=== PATIENT | male | born 1980 | race Caucasian/White ===

== ENCOUNTER 2022-07-15 19:58 | Emergency (ER) | payer MEDICARE, OTHER ==
[~2022-07-15] VITALS: Ht 180.3 cm; Wt 77.1 kg
--- NOTE | 2022-07-15 21:12 | NUR ---
CALLED FOR TRIAGE. NO ANSWER
--- NOTE | 2022-07-15 21:36 | NUR ---
called for triage. no answer
[2022-07-15 22:13] VITALS: BP 139/98
[2022-07-15] MEDS ORDERED: OLANZAPINE 5 MG TABLET ONE (22:28)
[2022-07-15] MEDS ORDERED: OLANZAPINE 5 MG TABLET PO ONE (22:30)
== END 2022-07-15 22:43 | disposition home or self-care (01) ==
LOC: ER 20:03
DX: R44.1 Visual hallucinations (principal); E11.9 Type 2 diabetes mellitus without complications; F17.200 Nicotine dependence, unspecified, uncomplicated; Z88.0 Allergy status to penicillin; Z59.00 Homelessness unspecified

== ENCOUNTER 2022-07-16 13:56 | Emergency (ER) | payer MEDICARE, OTHER ==
[~2022-07-16] VITALS: Ht 180.3 cm; Wt 90.7 kg
[2022-07-16 15:20] LABS: BASOPHILS # (AUTO) 0.1 K/uL (0.0-0.2); EOSINOPHILS % (AUTO) 2.4 % (0.0-6.0); HEMATOCRIT 41 % (39-51); HEMOGLOBIN 13.9 g/dL (13.5-17.5); LYMPHOCYTES # (AUTO) 1.2 K/uL (0.8-4.8); LYMPHOCYTES % (AUTO) 23.9 % (20.0-44.0); MEAN CORPUSCULAR HGB CONC 34 g/dl (31.0-36.0); MEAN CORPUSCULAR VOLUME 90 fL (80-96); MONOCYTES # (AUTO) 0.3 K/uL (0.1-1.30); MONOCYTES % (AUTO) 5.3 % (2.0-12.0); NEUTROPHILS # (AUTO) 3.5 K/uL (1.8-8.9); NEUTROPHILS % (AUTO) 66.4 % (43.0-81.0); PLATELET COUNT (AUTO) 320 K/uL (150-450); RED BLOOD CELL COUNT(AUTO) 4.55 MIL/uL (4.5-6.0); WHITE BLOOD COUNT (AUTO) 5.2 K/uL (4.3-11.0)
[2022-07-16 15:30] LABS: CALCIUM, SERUM 9.3 mg/dL (8.5-10.1); CARBON DIOXIDE 32 mmol/L (21-32); CHLORIDE 99 mmol/L (98-107); CREATININE 0.9 mg/dL (0.6-1.3); GLUCOSE 279 mg/dL (74-106); POTASSIUM 3.7 mmol/L (3.5-5.1); SODIUM SERUM 135 mmol/L (136-145); UREA NITROGEN, BLOOD 10 mg/dL (7-18)
[2022-07-16 15:36] LABS: ACETAMINOPHEN 4 ug/ml (10-30); ALANINE AMINOTRANSFERASE 48 U/L (12-78); ALBUMIN 4.1 g/dL (3.4-5.0); ALCOHOL, BLOOD < 3 mg/dL (0-0); ALKALINE PHOSPHATASE 158 U/L (46-116); ASPARTATE AMINOTRANSFERASE 25 U/L (15-37); BILIRUBIN,DIRECT 0.2 mg/dL (0.0-0.2); BILIRUBIN,TOTAL 0.6 mg/dL (0.2-1.0); TOTAL PROTEIN, SERUM 7.3 g/dL (6.4-8.2)
[2022-07-16 15:44] LABS: BILIRUBIN,URINE 1+ (NEGATIVE); COLOR,URINE YELLOW (YELLOW); LEUKOCYTE ESTERASE ,URINE NEGATIVE (NEGATIVE); NITRITE, URINE NEGATIVE (NEGATIVE); PROTEIN,URINE NEGATIVE (NEGATIVE); UGLUCOSE 3+ mg/dL (NEGATIVE)
[2022-07-16 16:10] LABS: BACTERIA,URINE None seen /HPF (None Seen); CALCIUM OXALATE CRYSTALS,UR Moderate /HPF (None Seen); RBC,URINE 0-2 /HPF (0-2); SQUAMOUS EPITHELIAL CELL,UR 0-2 /HPF (None Seen); WBC,URINE 0-2 /HPF (0-3)
[2022-07-16] MEDS ORDERED: LORAZEPAM 1 MG TABLET PO ONE (17:00)
[2022-07-16] MEDS ORDERED: INSULIN REGULAR, HUMAN 100 UNIT/ML 10 ML VIAL SQ ONE (17:00)
[2022-07-16] MEDS ORDERED: LORAZEPAM 1 MG TABLET ONE (17:28)
[2022-07-16] MEDS ORDERED: INSULIN REGULAR, HUMAN 100 UNIT/ML 10 ML VIAL ONE (17:28)
--- NOTE | 2022-07-16 21:08 | NUR ---
PT ACCEPTED TO [facility]. # FOR REPORT [phone], UNIT 2
--- NOTE | 2022-07-16 21:18 | NUR ---
PER ART- [facility] INTAKE, DR. GRIFFITH ACCEPTED, RN FOR REPORT, UNIT 2 EXT 240, [facility] VAN STAFFING OPERATIONS MANAGER IN 45MIN TO 1 HOUR
--- NOTE | 2022-07-16 21:53 | NUR ---
REPORT GIVEN TO INGRID VIGIL AT [facility]
[2022-07-16 21:54] VITALS: BP 128/80
== END 2022-07-16 21:54 ==
LOC: ER 14:03
DX: F23 Brief psychotic disorder (principal); E11.65 Type 2 diabetes mellitus with hyperglycemia; E78.5 Hyperlipidemia, unspecified; R82.2 Biliuria; F41.9 Anxiety disorder, unspecified; F11.20 Opioid dependence, uncomplicated; F17.210 Nicotine dependence, cigarettes, uncomplicated; Z79.4 Long term (current) use of insulin; Z59.01 Sheltered homelessness; Z20.822 Contact with and (suspected) exposure to COVID-19
CPT/HCPCS: 99285; 85025; 80048; 80076; 81001; 36415; 82962 ×2; 87426; 80143; 80320; 80307; J1815; C9803; G0480

== ENCOUNTER 2022-07-26 14:03 | Emergency (ER) | payer MEDICARE, OTHER ==
[~2022-07-26] VITALS: Ht 180.3 cm; Wt 84.4 kg
[2022-07-26 14:20] VITALS: BP 152/92
--- NOTE | 2022-07-26 14:26 | NUR ---
SECURITY AT BEDSIDE FOR WANDING.
[2022-07-26] MEDS ORDERED: ONDANSETRON 4 MG TAB.RAPDIS ONE (14:28)
[2022-07-26] MEDS ORDERED: ONDANSETRON 4 MG TAB.RAPDIS SL ONE (14:30)
--- NOTE | 2022-07-26 14:43 | NUR ---
URINE SAMPLE COLLECTED AND SENT TO LAB
--- NOTE | 2022-07-26 14:44 | NUR ---
COVID SWAB COLLECTED AND TO LAB
[2022-07-26 15:09] LABS: CALCIUM, SERUM 9.4 mg/dL (8.5-10.1); CARBON DIOXIDE 33 mmol/L (21-32); CHLORIDE 95 mmol/L (98-107); GLUCOSE 171 mg/dL (74-106); POTASSIUM 3.9 mmol/L (3.5-5.1); SODIUM SERUM 135 mmol/L (136-145); UREA NITROGEN, BLOOD 10 mg/dL (7-18)
[2022-07-26 15:14] LABS: ALANINE AMINOTRANSFERASE 80 U/L (12-78); ALKALINE PHOSPHATASE 197 U/L (46-116); ASPARTATE AMINOTRANSFERASE 45 U/L (15-37); BILIRUBIN,DIRECT 0.1 mg/dL (0.0-0.2); BILIRUBIN,TOTAL 0.4 mg/dL (0.2-1.0); TOTAL PROTEIN, SERUM 7.5 g/dL (6.4-8.2)
[2022-07-26 15:15] LABS: ALCOHOL, BLOOD < 3 mg/dL (0-0)
[2022-07-26 15:28] LABS: BILIRUBIN,URINE NEGATIVE (NEGATIVE); COLOR,URINE YELLOW (YELLOW); LEUKOCYTE ESTERASE ,URINE NEGATIVE (NEGATIVE); NITRITE, URINE NEGATIVE (NEGATIVE); PROTEIN,URINE 1+ mg/dl (NEGATIVE); UGLUCOSE 2+ mg/dL (NEGATIVE); UROBILINOGEN,URINE 0.2 EU/dL (0.2)
[2022-07-26 15:29] LABS: BASOPHILS % (AUTO) 0.4 % (0.0-2.0); EOSINOPHILS % (AUTO) 0.1 % (0.0-6.0); HEMATOCRIT 44 % (39-51); HEMOGLOBIN 14.9 g/dL (13.5-17.5); LYMPHOCYTES # (AUTO) 1.6 K/uL (0.8-4.8); LYMPHOCYTES % (AUTO) 19.2 % (20.0-44.0); MEAN CORPUSCULAR HGB CONC 34 g/dl (31.0-36.0); MEAN CORPUSCULAR VOLUME 89 fL (80-96); MONOCYTES # (AUTO) 0.6 K/uL (0.1-1.30); MONOCYTES % (AUTO) 7.2 % (2.0-12.0); NEUTROPHILS % (AUTO) 73.1 % (43.0-81.0); PLATELET COUNT (AUTO) 317 K/uL (150-450); RED BLOOD CELL COUNT(AUTO) 4.91 MIL/uL (4.5-6.0); WHITE BLOOD COUNT (AUTO) 8.2 K/uL (4.3-11.0)
[2022-07-26] MEDS ORDERED: LORAZEPAM 1 MG TABLET ONE (15:29)
[2022-07-26] MEDS ORDERED: LORAZEPAM 1 MG TABLET PO ONE (15:30)
[2022-07-26 15:57] LABS: BACTERIA,URINE None seen /HPF (None Seen); MUCUS,URINE Moderate /LPF (None Seen); SQUAMOUS EPITHELIAL CELL,UR 0-2 /HPF (None Seen); WBC,URINE 0-2 /HPF (0-3)
--- NOTE | 2022-07-26 16:28 | NUR ---
FAXED CLINICALS TO [facility] AND [facility].
--- NOTE | 2022-07-26 16:43 | NUR ---
PT ACCEPTED TO [facility] UNDER DR. MEJIA. PLEASE CALL [phone] FOR REPORT. TRANSPORT ETA 20 MINS.
--- NOTE | 2022-07-26 17:05 | NUR ---
SALES REPRESENTATIVE GROCERIES BY [facility] TRANSPORT IN STABLE CONDITION.
== END 2022-07-26 17:07 | disposition home or self-care (01) ==
LOC: ER 14:20
DX: F32.A Depression, unspecified (principal); E11.9 Type 2 diabetes mellitus without complications; F17.200 Nicotine dependence, unspecified, uncomplicated; F41.9 Anxiety disorder, unspecified; Z20.822 Contact with and (suspected) exposure to COVID-19; Z88.0 Allergy status to penicillin
CPT/HCPCS: 99283; 85025; 80048; 80076; 81001; 36415; 87426; 80143; 80320; 80307; Q0162; C9803; G0480

== ENCOUNTER 2022-08-06 12:23 | Emergency (ER) | payer MEDICARE, OTHER ==
[~2022-08-06] VITALS: Ht 177.8 cm; Wt 81.6 kg
--- NOTE | 2022-08-06 12:39 | NUR ---
SECURITY CALLED IN FOR ROUNDING.
--- NOTE | 2022-08-06 12:39 | NUR ---
BIBS FOR HAVING SI WITH NO PLAN AND C/O NAUSEA DENIES HI. DENIES HAVING VISUAL OR AUDITORY HALLUCINATIONS. WILL CONTINUE TO MONITOR THE PATIENT.
--- NOTE | 2022-08-06 12:46 | NUR ---
COVID SWAB DONE AND SENT TO THE LAB. URINE COLLECTED AND SENT TO THE LAB.
[2022-08-06 13:00] LABS: BASOPHILS % (AUTO) 0.4 % (0.0-2.0); HEMATOCRIT 48 % (39-51); HEMOGLOBIN 15.6 g/dL (13.5-17.5); LYMPHOCYTES # (AUTO) 1.1 K/uL (0.8-4.8); LYMPHOCYTES % (AUTO) 17.7 % (20.0-44.0); MEAN CORPUSCULAR HGB CONC 33 g/dl (31.0-36.0); MEAN CORPUSCULAR VOLUME 94 fL (80-96); MONOCYTES # (AUTO) 0.5 K/uL (0.1-1.30); MONOCYTES % (AUTO) 7.5 % (2.0-12.0); NEUTROPHILS # (AUTO) 4.7 K/uL (1.8-8.9); NEUTROPHILS % (AUTO) 74.4 % (43.0-81.0); PLATELET COUNT (AUTO) 373 K/uL (150-450); RED BLOOD CELL COUNT(AUTO) 5.04 MIL/uL (4.5-6.0); WHITE BLOOD COUNT (AUTO) 6.3 K/uL (4.3-11.0)
[2022-08-06] MEDS ORDERED: ONDANSETRON 4 MG TAB.RAPDIS SL ONE (13:00)
[2022-08-06] MEDS ORDERED: ONDANSETRON 4 MG TAB.RAPDIS ONE (13:20)
[2022-08-06] MEDS ORDERED: LORAZEPAM 1 MG TABLET ONE ×2 (13:20→17:32)
[2022-08-06 13:27] LABS: BILIRUBIN,URINE NEGATIVE (NEGATIVE); COLOR,URINE DARK YELLOW (YELLOW); LEUKOCYTE ESTERASE ,URINE NEGATIVE (NEGATIVE); NITRITE, URINE NEGATIVE (NEGATIVE); PROTEIN,URINE 1+ mg/dl (NEGATIVE); UGLUCOSE 2+ mg/dL (NEGATIVE)
[2022-08-06 13:28] LABS: BACTERIA,URINE Rare /HPF (None Seen); RBC,URINE 0-2 /HPF (0-2); SQUAMOUS EPITHELIAL CELL,UR Few /HPF (None Seen); WBC,URINE 0-2 /HPF (0-3)
[2022-08-06] MEDS ORDERED: LORAZEPAM 1 MG TABLET PO ONE ×2 (13:30→17:30)
[2022-08-06 13:42] LABS: CALCIUM, SERUM 9.1 mg/dL (8.5-10.1); CARBON DIOXIDE 31 mmol/L (21-32); CHLORIDE 93 mmol/L (98-107); CREATININE 1.1 mg/dL (0.6-1.3); GLUCOSE 296 mg/dL (74-106); POTASSIUM 4.6 mmol/L (3.5-5.1); SODIUM SERUM 130 mmol/L (136-145); UREA NITROGEN, BLOOD 12 mg/dL (7-18)
[2022-08-06 13:52] LABS: ALANINE AMINOTRANSFERASE 37 U/L (12-78); ALBUMIN 4.4 g/dL (3.4-5.0); ALKALINE PHOSPHATASE 157 U/L (46-116); ASPARTATE AMINOTRANSFERASE 24 U/L (15-37); BILIRUBIN,DIRECT 0.2 mg/dL (0.0-0.2); BILIRUBIN,TOTAL 0.8 mg/dL (0.2-1.0)
[2022-08-06 13:53] LABS: ALCOHOL, BLOOD < 3 mg/dL (0-0)
--- NOTE | 2022-08-06 16:39 | NUR ---
sent pt clinicals to [facility]
--- NOTE | 2022-08-06 19:25 | NUR ---
TRANSFERRED TO [facility] IN [facility] CONDITION WITH ALL HIS BELONGINGS
[2022-08-07 00:21] VITALS: BP 123/102
== END 2022-08-07 00:23 ==
LOC: ER 12:26
DX: R45.851 Suicidal ideations (principal); E11.9 Type 2 diabetes mellitus without complications; F17.200 Nicotine dependence, unspecified, uncomplicated; Z20.822 Contact with and (suspected) exposure to COVID-19; Z59.00 Homelessness unspecified; Z88.0 Allergy status to penicillin
CPT/HCPCS: 99285; 85025; 80048; 80076; 81001; 36415; 82962; 87426; 80143; 80320; 80307; Q0162; C9803; G0480

== ENCOUNTER 2022-10-12 16:32 | Inpatient (IN) | payer MEDICARE, OTHER ==
[~2022-10-12] VITALS: Ht 180.3 cm; Wt 89.4 kg
--- NOTE | 2022-10-12 17:10 | NUR ---
PATIENT CAME WITH ABDOMINAL PAIN AND VOMITING.ALERT AND ORIENTED.ON ROOM AIR.ATTACHED TO MONITOR.
--- NOTE | 2022-10-12 17:15 | NUR ---
DR WU AT BED SIDE
--- NOTE | 2022-10-12 17:55 | NUR ---
DR WU AT BED SIDE
[2022-10-12] MEDS ORDERED: IV NS 0.9% 1,000 ML BAG IV ONE (18:00)
[2022-10-12] MEDS ORDERED: MORPHINE SULFATE INJ 2 MG/ML DISP.SYRIN IV ONE (18:00)
[2022-10-12] MEDS ORDERED: KETOROLAC TROMETHAMINE INJ 30 MG/ML VIAL IV ONE ×2 (18:00→19:30)
[2022-10-12] MEDS ORDERED: ONDANSETRON HCL/PF 4 MG/2 ML VIAL IVP ONE (18:00)
--- NOTE | 2022-10-12 18:00 | NUR ---
IV 20G ON RT AC,BLOOD COLLECTED AND SEND TO LAB
--- NOTE | 2022-10-12 18:08 | NUR ---
ULTRA SOUND AT BED SIDE
[2022-10-12] MEDS ORDERED: KETOROLAC TROMETHAMINE 15 MG/ML VIAL ONE ×2 (18:09→19:26)
[2022-10-12] MEDS ORDERED: ONDANSETRON HCL/PF 4 MG/2 ML VIAL ONE (18:10)
[2022-10-12] MEDS ORDERED: MORPHINE SULFATE INJ 4 MG/ML DISP.SYRIN ONE (18:10)
[2022-10-12 18:14] LABS: BASOPHILS % (AUTO) 0.4 % (0.0-2.0); EOSINOPHILS % (AUTO) 1.5 % (0.0-6.0); HEMATOCRIT 41 % (39-51); HEMOGLOBIN 13.8 g/dL (13.5-17.5); LYMPHOCYTES # (AUTO) 1.8 K/uL (0.8-4.8); LYMPHOCYTES % (AUTO) 21.9 % (20.0-44.0); MEAN CORPUSCULAR HGB CONC 34 g/dl (31.0-36.0); MEAN CORPUSCULAR VOLUME 90 fL (80-96); MONOCYTES # (AUTO) 0.6 K/uL (0.1-1.30); MONOCYTES % (AUTO) 7.4 % (2.0-12.0); NEUTROPHILS # (AUTO) 5.7 K/uL (1.8-8.9); NEUTROPHILS % (AUTO) 68.8 % (43.0-81.0); PLATELET COUNT (AUTO) 252 K/uL (150-450); RED BLOOD CELL COUNT(AUTO) 4.55 MIL/uL (4.5-6.0); WHITE BLOOD COUNT (AUTO) 8.2 K/uL (4.3-11.0)
[2022-10-12 18:33] LABS: ALBUMIN 4.1 g/dL (3.4-5.0); BILIRUBIN,DIRECT 0.1 mg/dL (0.0-0.2); BILIRUBIN,TOTAL 0.4 mg/dL (0.2-1.0); CALCIUM, SERUM 9.9 mg/dL (8.5-10.1); CREATININE 0.9 mg/dL (0.6-1.3); POTASSIUM 5.2 mmol/L (3.5-5.1); TOTAL PROTEIN, SERUM 7.4 g/dL (6.4-8.2)
[2022-10-12] MEDS ORDERED: PANTOPRAZOLE 40 MG VIAL ONE (19:26)
[2022-10-12] MEDS ORDERED: LIDOCAINE VISCOUS 2% UD 15 ML UDC ONE (19:26)
[2022-10-12] MEDS ORDERED: MAG HYDROX/AL HYDROX/SIMETH 30 ML UDC ONE (19:26)
[2022-10-12] MEDS ORDERED: PANTOPRAZOLE 40 MG VIAL IV ONE (19:30)
[2022-10-12] MEDS ORDERED: LIDOCAINE VISCOUS 2% UD 15 ML UDC MM ONE (19:30)
[2022-10-12] MEDS ORDERED: MAG HYDROX/AL HYDROX/SIMETH 30 ML UDC PO ONE (19:30)
[2022-10-12] MEDS ORDERED: ONDANSETRON HCL/PF 4 MG/2 ML VIAL IVP PRN (20:30)
--- NOTE | 2022-10-12 21:15 | NUR ---
REPRT GIVEN TO PEG @ [facility]
--- NOTE | 2022-10-12 21:46 | NUR ---
GETTING TRANSFERRED TO THIRD FLOOR IN STABLE CONDITION
[2022-10-12 21:50] VITALS: BP 118/83; TEMP 98.2; O2SAT 97
[2022-10-12 22:00] VITALS: BP 118/83; TEMP 98.2; O2SAT 97
--- NOTE | 2022-10-12 22:00 | NUR ---
MS CLINICAL DATA MANAGEMENT MANAGER NOTE PATIENT ARRIVED AT THE UNIT FROM ER ON A GURNEY. HE IS ALERT AND ORIENTED, AO X 4. PT IS ON RA, TOLERATED WELL; NO S/S OF DISTRESS OR SOB. PT DENIES OF HAVING PAIN AT THIS MOMENT. IV ACCESS IS AT HIS R AC. #20G. SL. FLUSHED WELL WITH 10 CC OF NS. UPON ARRIVAL, VITAL SIGNS WERE TAKEN AND DOCUMENTED. SAFETY MEASURES ARE IN PLACED: BED IN LOWEST AND LOCKED POSITION; SIDE RAILS UP X 2; CALL LIGHT AND TABLE ARE WITHIN REACH. WILL CONTINUE MONITORING THE PT AND PROVIDE THE CARE PT NEEDS.
[2022-10-12] MEDS: IV LR 1000 ML 1,000 ML IV SCH (22:21)
[2022-10-12] MEDS: MORPHINE SULFATE INJ 2 MG/ML DISP.SYRIN IV PRN (22:26)
[2022-10-12] MEDS: ENOXAPARIN SODIUM 40 MG/0.4 ML DISP.SYRIN SQ SCH (22:27)
--- NOTE | 2022-10-12 22:30 | NUR ---
MS RN NOTE PT STATED THAT HE WAS HAVING PAIN AT HIS R SIDE OF ABD; PAIN LEVEL IS 9/10. PRN MEDICATION, MORPHINE 2 MG, ADMINISTERED PER MD ORDER.
--- NOTE | 2022-10-13 | NUR ---
MS RN NOTE FINISHED PT'S HOME MEDICATION RECON. TEXT DR.DERMENDJIAN SIEGEL AND NOTIFIED DOCTOR. IN ADDITION, NOTIFIED MD THAT THE PT STATED THE CURRENT PAIN MEDICATION IS NOT ABLE TO MANAGE HIS PAIN. ALSO NOTIFIED THAT THE PT IS DM TYPE II, AND NEED ORDERS FOR ACCU-CHEK AND SLIDING SCALE INSULIN ORDER.
[2022-10-13] MEDS ORDERED: CITA20TA19 (00:17)
[2022-10-13] MEDS ORDERED: METF-442 PO (00:17)
[2022-10-13] MEDS ORDERED: ALPR1TAB2 PO (00:17)
[2022-10-13] MEDS ORDERED: GABA600T12 PO (00:17)
[2022-10-13] MEDS ORDERED: QUET200T PO (00:17)
[2022-10-13] MEDS ORDERED: PANT20TA2 PO (00:17)
[2022-10-13] MEDS: ALPRAZOLAM 1 MG TABLET PO PRN ×2 (01:16→22:10)
--- NOTE | 2022-10-13 01:17 | NUR ---
MS RN NOTE PT STATED THAT HE IS HAVING ANXIETY AND NEEDED XANAX. PRN MEDICATION, XANAX 1 MG, ADMINISTERED TO THE PT.
[2022-10-13] MEDS ORDERED: DEXTROSE 50%-WATER 50 ML DISP.SYRIN IV PRN (01:30)
--- NOTE | 2022-10-13 01:30 | NUR ---
MS RN NOTE RECEIVED MD ORDER FOR ACCU CHECK AND SLIDING SCALE INSULIN.
[2022-10-13] MEDS: IV LR 1000 ML 1,000 ML IV SCH ×2 (01:37→05:39)
[2022-10-13] MEDS: MORPHINE SULFATE INJ 2 MG/ML DISP.SYRIN IV PRN (03:12)
[2022-10-13] MEDS: ACETAMINOPHEN 325 MG TABLET PO PRN (05:21)
--- NOTE | 2022-10-13 05:21 | NUR ---
MS RN NOTE PT STATED THAT HE WAS HAVING PAIN AT HIS R SIDE OF ABD; PAIN LEVEL IS 4/10. PRN MEDICATION, TYLENOL 650 MG, ADMINISTERED PER MD ORDER.
[2022-10-13] MEDS: BLOOD SUGAR DIAGNOSTIC 1 EACH STRIP IN SCH ×4 (06:39→23:28)
--- NOTE | 2022-10-13 06:39 | NUR ---
MS RN NOTE AM LAB DRAW WAS NOT ABLE TO BE DONE DUE TO PT'S CONDITION. THEY WILL TRY AGAIN LATER TODAY.
--- NOTE | 2022-10-13 06:39 | NUR ---
MS RN NOTE RECEIVED MD ORDER FOR PAIN MEDICATIONS.
[2022-10-13 06:48] LABS: BASOPHILS % (AUTO) 0.4 % (0.0-2.0); EOSINOPHILS % (AUTO) 1.5 % (0.0-6.0); HEMATOCRIT 39 % (39-51); HEMOGLOBIN 13.3 g/dL (13.5-17.5); LYMPHOCYTES # (AUTO) 1.6 K/uL (0.8-4.8); LYMPHOCYTES % (AUTO) 23.3 % (20.0-44.0); MEAN CORPUSCULAR HGB CONC 34 g/dl (31.0-36.0); MEAN CORPUSCULAR VOLUME 91 fL (80-96); MONOCYTES # (AUTO) 0.6 K/uL (0.1-1.30); MONOCYTES % (AUTO) 8.9 % (2.0-12.0); NEUTROPHILS # (AUTO) 4.4 K/uL (1.8-8.9); NEUTROPHILS % (AUTO) 65.9 % (43.0-81.0); PLATELET COUNT (AUTO) 200 K/uL (150-450); RED BLOOD CELL COUNT(AUTO) 4.34 MIL/uL (4.5-6.0); WHITE BLOOD COUNT (AUTO) 6.7 K/uL (4.3-11.0)
[2022-10-13] MEDS: INSULIN REGULAR, HUMAN 100 UNIT/ML 3 ML VIAL SQ PRN ×3 (06:55→17:32)
[2022-10-13 07:15] LABS: ALBUMIN 3.2 g/dL (3.4-5.0); BILIRUBIN,TOTAL 0.5 mg/dL (0.2-1.0); CALCIUM, SERUM 8.9 mg/dL (8.5-10.1); POTASSIUM 4.7 mmol/L (3.5-5.1); TOTAL PROTEIN, SERUM 6.2 g/dL (6.4-8.2)
[2022-10-13 07:30] VITALS: BP 148/112; TEMP 98.2; O2SAT 100
--- NOTE | 2022-10-13 07:37 | NUR ---
MS RN CLOSING NOTE PATIENT IS SITTING IN BED WITH HOB ELEVATED. HE IS ALERT AND ORIENTED, AO X 4. PT IS ON RA, TOLERATED WELL; NO S/S OF DISTRESS OR SOB. PT DENIES OF HAVING PAIN AT THIS MOMENT. IV ACCESS IS AT HIS R AC. #20G. INFUSING LR @ 200 ML/HR. IV SITE IS PATENT AND INTACT. SAFETY MEASURES ARE IN PLACED: BED IN LOWEST AND LOCKED POSITION; SIDE RAILS UP X 2; CALL LIGHT AND TABLE ARE WITHIN REACH. ENDORSED NEXT SHIFT NURSE FOR CONTINUING CARE.
--- NOTE | 2022-10-13 07:40 | NUR ---
RN OPENING NOTES: RECEIVED PT AWAKE IN BED, A/O X4 ABLE TO MAKE NEEDS KNOWN. ON RA WITH NO S/S OF SOB, C/O OF ABD PAIN 11/29, RN WILL MEDICATE ORDERED. IV ACCESS AT R AC #20 RUNNING LR @ 200CC/HR. ALL SAFETY MEASURES IN PLACE, CALL LIGHT AND TABLE WITHIN REACH, WILL CONT WITH PLAN OF CARE DURING SHIFT.
[2022-10-13] MEDS: HYDROMORPHONE 1 MG/1 ML DISP.SYRIN IV PRN ×5 (07:51→21:22)
--- NOTE | 2022-10-13 08:00 | NUR ---
RN NOTES: GIVEN PAIN MGT PRN, WILL REASSESS FOR EFFECTIVENESS
[2022-10-13] MEDS ORDERED: LORAZEPAM INJ 2 MG/ML VIAL IV ONE (12:00)
--- NOTE | 2022-10-13 12:25 | NUR ---
RN NOTE- WITNESSED WASTE OF ATIVAN 1 MG BY INGRID RICE
--- NOTE | 2022-10-13 12:28 | NUR ---
RN NOTES: GIVEN ONE TIME, 1 MG ATIVAN BEFORE MRI, PT REPORTS EXPERIENCING ANXIETY IN CONFINED SPACES.
[2022-10-13] MEDS: IV LR 1000 ML 1,000 ML IV PRN (13:03)
[2022-10-13] MEDS: METHADONE HCL 10 MG TABLET PO SCH (13:50)
[2022-10-13] MEDS ORDERED: METHADONE HCL 10 MG TABLET PO SCH (14:00)
[2022-10-13 16:00] VITALS: BP 134/93; TEMP 97; O2SAT 96
[2022-10-13] MEDS: GABAPENTIN 300 MG CAPSULE PO SCH (17:13)
--- NOTE | 2022-10-13 17:36 | NUR ---
RN NOTES: GABAPENTIN RN DROPPED 1 GABAPENTIN TO THE FLOOR, WASTED THAT PILL PER UNIT PROTOCOL, TOOK 1 FROM OMNICELL AND ADMINISTERED
[2022-10-13 19:00] VITALS: BP 142/84; TEMP 99; O2SAT 98
--- NOTE | 2022-10-13 19:30 | NUR ---
RN CLOSING NOTES: PT AWAKE IN BED, A/O X4 ABLE TO MAKE NEEDS KNOWN. ON RA WITH NO S/S OF SOB, C/O PAIN 2/10 AT TIME. S/P MRCP. IV ACCESS AT R AC #20 RUNNING LR @ 200CC/HR. PAIN MGT ADMINISTERED, MATHADONE GIVEN ORDERED. ALL NEEDS MET. SAFETY MEASURES IN PLACE, CALL LIGHT AND TABLE WITHIN REACH, ENDORSED TO PM SHIFT.
--- NOTE | 2022-10-13 19:30 | NUR ---
MS RN NOTES RECEIVED ON BED A/O X4,BREATHING EASY,NO SOB,NO ABDOMINAL PAIN AT THE MOMENT.PRESENT IVF LR AT 200ML./HR RATE INFUSING WELL ON RIGHT AC SALINE LOCK.AMBULATE WITH STEADY GAIT.WILL CONTINUE FOR ABDOMINAL PAIN,CALL LIGHT IN REACH,NEEDS ANTICIPATED.
[2022-10-13 20:00] VITALS: BP 126/84; TEMP 97.5; O2SAT 95
[2022-10-13] MEDS: ENOXAPARIN SODIUM 40 MG/0.4 ML DISP.SYRIN SQ SCH (21:10)
[2022-10-13] MEDS: QUETIAPINE FUMARATE 100 MG TABLET PO SCH (21:10)
--- NOTE | 2022-10-13 21:22 | NUR ---
MS RN NOTES AWAKE,IN PAIN 8/10 ON PAIN SCALE,DILAUDID 1MG IV GIVEN PER PATIENT REQUEST.VITAL SIGNS STABLE.
--- NOTE | 2022-10-13 21:50 | NUR ---
MS RN NOTES ACCU-CHECK BLOOD SUGAR CHECK 85,ALERT,ORIENTED X4,APPLE JUICE GIVEN PER PATIENT REQUEST.
--- NOTE | 2022-10-13 22:10 | NUR ---
MS RN NOTES FEELING ANXIOUS,XANAX 1MG PO GIVEN ORDERED FOR ANXIETY.
--- NOTE | 2022-10-14 00:13 | NUR ---
MS RN NOTES IN PAIN 8/10 ON PAIN SCALE,DILAUDID 1MG IV GIVEN ORDERED.VITAL SIGNS STABLE.
[2022-10-14] MEDS: HYDROMORPHONE 1 MG/1 ML DISP.SYRIN IV PRN ×6 (00:15→23:04)
[2022-10-14] MEDS: IV LR 1000 ML 1,000 ML IV PRN ×2 (01:49→07:25)
[2022-10-14] MEDS: BLOOD SUGAR DIAGNOSTIC 1 EACH STRIP IN SCH ×4 (05:47→21:41)
[2022-10-14] MEDS: INSULIN REGULAR, HUMAN 100 UNIT/ML 3 ML VIAL SQ PRN ×4 (06:05→21:44)
[2022-10-14] MEDS: METHADONE HCL 10 MG TABLET PO SCH (06:33)
--- NOTE | 2022-10-14 06:47 | NUR ---
MS RN NOTES STILL WITH ON AND OFF ABDOMINAL PAIN,MANAGE WITH DILAUDID.IVF INFUSING WELL RIGHT AC SALINE LOCK.IN NO ACUTE DISTRESS.
[2022-10-14 07:06] LABS: BASOPHILS % (AUTO) 0.7 % (0.0-2.0); EOSINOPHILS % (AUTO) 2.3 % (0.0-6.0); HEMATOCRIT 38 % (39-51); HEMOGLOBIN 12.8 g/dL (13.5-17.5); LYMPHOCYTES # (AUTO) 1.8 K/uL (0.8-4.8); MEAN CORPUSCULAR HGB CONC 34 g/dl (31.0-36.0); MEAN CORPUSCULAR VOLUME 90 fL (80-96); MONOCYTES # (AUTO) 0.4 K/uL (0.1-1.30); MONOCYTES % (AUTO) 11.4 % (2.0-12.0); NEUTROPHILS # (AUTO) 1.1 K/uL (1.8-8.9); NEUTROPHILS % (AUTO) 32.6 % (43.0-81.0); PLATELET COUNT (AUTO) 192 K/uL (150-450); RED BLOOD CELL COUNT(AUTO) 4.16 MIL/uL (4.5-6.0); WHITE BLOOD COUNT (AUTO) 3.3 K/uL (4.3-11.0)
--- NOTE | 2022-10-14 07:20 | NUR ---
RN OPENING NOTES: RECEIVED PT AWAKE IN BED, A/O X4 ABLE TO MAKE NEEDS KNOWN. ON RA WITH NO S/S OF SOB, NO C/O OF PAIN AND DISCOMFORT . IV ACCESS AT R AC #20 RUNNING LR @ 200CC/HR. ALL SAFETY MEASURES IN PLACE, CALL LIGHT AND TABLE WITHIN REACH, WILL CONT WITH PLAN OF CARE DURING SHIFT.
[2022-10-14 07:31] LABS: ALBUMIN 3.1 g/dL (3.4-5.0); BILIRUBIN,TOTAL 0.4 mg/dL (0.2-1.0); CALCIUM, SERUM 9.3 mg/dL (8.5-10.1); CREATININE 0.8 mg/dL (0.6-1.3); POTASSIUM 4.3 mmol/L (3.5-5.1); TOTAL PROTEIN, SERUM 6.3 g/dL (6.4-8.2)
[2022-10-14 08:00] VITALS: BP 151/81; TEMP 98.1; O2SAT 98
[2022-10-14] MEDS ORDERED: METHADONE HCL (40MG) 40 MG TABLET.SOL PO SCH (09:00)
[2022-10-14] MEDS: CITALOPRAM HYDROBROMIDE 20 MG TABLET PO SCH (09:06)
[2022-10-14] MEDS: PANTOPRAZOLE 40 MG TABLET.DR PO SCH ×2 (09:06→21:40)
[2022-10-14] MEDS: THIAMINE HCL 100 MG TABLET PO SCH (09:06)
[2022-10-14] MEDS: GABAPENTIN 300 MG CAPSULE PO SCH ×3 (09:07→17:27)
--- NOTE | 2022-10-14 09:20 | NUR ---
RN NOTES DILAUDID 1MG /1ML TAKEN FROM OMNICELL AND WASTED OF 0.5MG / .5ML WITNESSED BY JM KEITA RN
--- NOTE | 2022-10-14 09:22 | NUR ---
RN NOTES WITNESSED WASTING DILAUDID 0.5MG/.5ML OUT OF 1MG.
[2022-10-14] MEDS: ALPRAZOLAM 1 MG TABLET PO PRN (11:37)
[2022-10-14] MEDS: SUCRALFATE 1 G/10 ML UDC GT SCH ×3 (12:29→21:40)
[2022-10-14] MEDS ORDERED: SIME80TA15 PO (13:11)
[2022-10-14] MEDS ORDERED: METH10TA2 PO (13:11)
[2022-10-14] MEDS ORDERED: TEMA15CA PO (13:11)
[2022-10-14] MEDS ORDERED: IBUP-1953 PO (13:11)
[2022-10-14] MEDS ORDERED: THIA100T88 PO (13:11)
[2022-10-14] MEDS ORDERED: INSULIN REGULAR SQ (13:11)
[2022-10-14] MEDS ORDERED: METF-440 PO (13:11)
[2022-10-14] MEDS ORDERED: BUSP10TA3 PO (13:11)
[2022-10-14] MEDS ORDERED: INSULIN GLARGINE SQ (13:11)
[2022-10-14] MEDS ORDERED: FOLI0.8C PO (13:11)
[2022-10-14] MEDS ORDERED: LISI-768 PO (13:11)
[2022-10-14] MEDS ORDERED: BLOO-668 IN (13:35)
--- NOTE | 2022-10-14 14:45 | NUR ---
RN NOTES DILAUDID 1MG /1ML TAKEN FROM OMNICELL AND WASTED OF 0.5MG / .5ML WITNESSED BY JM KEITA RN
--- NOTE | 2022-10-14 14:50 | NUR ---
RN NOTES WITNESSED WASTING DILAUDID 0.5MG/.5ML OUT OF 1MG.
[2022-10-14 16:00] VITALS: BP 128/88; TEMP 97.9; O2SAT 97
--- NOTE | 2022-10-14 19:00 | NUR ---
RN NOTES DILAUDID 1MG /1ML TAKEN FROM OMNICELL AND WASTED OF 0.5MG / .5ML WITNESSED BY JM KEITA RN
--- NOTE | 2022-10-14 19:45 | NUR ---
RN CLOSING NOTES: PT AWAKE IN BED, A/O X4 ABLE TO MAKE NEEDS KNOWN. ON RA WITH NO S/S OF SOB, OF PAIN AND DISCOMFORT AND PAIN MDS ORDERED GIVEN . IV ACCESS AT R AC #20 SL . ALL DUE MEDS GIVEN ORDERED , ALL SAFETY MEASURES IN PLACE, CALL LIGHT AND TABLE WITHIN REACH, WILL CONT WITH PLAN OF CARE DURING SHIFT.ENDORSED TO NEXT SHIFT
--- NOTE | 2022-10-14 19:46 | NUR ---
MS RN OPENING NOTES - RECEIVED PATIENT AWAKE IN BED. A/O X4. BREATHING EVEN AND NON-LABORED ON ROOM AIR. VERBALIZED MODERATE EPIGASTRIC PAIN 45 MINUTES AFTER RECEIVING DILAUDID 0.5MG PRN. HAS RIGHT ANTECUBITAL IV ACCESS #20G AND SALINE LOCKED. NO S/S OF INFILTRATION NOTED. SAFETY PRECAUTIONS IN PLACE: BED LOCKED AND IN LOW POSITION, SIDE RAILS UP X2, CALL LIGHT WITHIN REACH. WILL CONTINUE PLAN OF CARE.
[2022-10-14 20:00] VITALS: BP 152/98; TEMP 97.3; O2SAT 100
[2022-10-14] MEDS: MUPIROCIN OINT 2% 22 GM TUBE NS SCH (21:39)
[2022-10-14] MEDS: ENOXAPARIN SODIUM 40 MG/0.4 ML DISP.SYRIN SQ SCH (21:41)
[2022-10-14] MEDS: QUETIAPINE FUMARATE 100 MG TABLET PO SCH (21:42)
--- NOTE | 2022-10-14 23:06 | NUR ---
WASTED 0.5MG OF DILAUDID 1MG, WITNESSED BY INGRID CALVO.
--- NOTE | 2022-10-14 23:07 | NUR ---
MS RN NOTE WITNESSED RN AUGUST RETRIEVE DILAUDID 1 MG FROM OMNICELL AND WASTE 0.5 MG IN RX DESTROYER. DILAUDID 0.5 MG GIVEN ORDERED
[2022-10-14] MEDS: ACETAMINOPHEN 325 MG TABLET PO PRN (23:27)
[2022-10-15] MEDS: METHADONE HCL 10 MG TABLET PO SCH (05:44)
[2022-10-15] MEDS: BLOOD SUGAR DIAGNOSTIC 1 EACH STRIP IN SCH ×2 (07:06→12:00)
[2022-10-15] MEDS: INSULIN REGULAR, HUMAN 100 UNIT/ML 3 ML VIAL SQ PRN (07:07)
--- NOTE | 2022-10-15 07:20 | NUR ---
MS RN CLOSING NOTES - PATIENT SLEEPING, EASY TO AROUSE. ABLE TO VERBALIZE NEEDS. NO CARDIAC OR RESPIRATORY DISTRESS THROUGHOUT THE NIGHT. NO C/O PAIN OR DISCOMFORT. RIGHT ANTECUBITAL IV ACCESS INTACT, PATENT AND FLUSHING. INDEPENDENT WITH ADLS. CLEAR YELLOW URINE NOTED. ALL DUE MEDS GIVEN AND NEEDS ATTENDED. MEDICAL LITERATURE ABOUT MRSA AND CHRONIC PANCREATITIS PROVIDED. SAFETY PRECAUTIONS MAINTAINED. WILL ENDORSE TO AM RN FOR TERELL.
--- NOTE | 2022-10-15 07:38 | NUR ---
MS RN OPENING NOTE RECEIVED PATIENT AWAKE IN BED. A/OX4. ABLE TO VERBALIZE NEEDS. NO CARDIAC OR RESPIRATORY DISTRESS. NO C/O PAIN OR DISCOMFORT AT THIS TIME. RIGHT ANTECUBITAL IV ACCESS G#22 INTACT, PATENT, AND FLUSHING WELL. INDEPENDENT WITH ADLS. SAFETY PRECAUTIONS MAINTAINED. BED IN LOWEST LOCKED POSITION, SIDE RAILS UP X2, TABLE AND CALL LIGHT WITHIN EASY REACH. WILL CONTINUE TO MONITOR PATIENT.
[2022-10-15 07:40] LABS: BASOPHILS % (AUTO) 0.6 % (0.0-2.0); EOSINOPHILS % (AUTO) 2.7 % (0.0-6.0); HEMATOCRIT 42 % (39-51); HEMOGLOBIN 14.1 g/dL (13.5-17.5); LYMPHOCYTES # (AUTO) 2.3 K/uL (0.8-4.8); LYMPHOCYTES % (AUTO) 52.9 % (20.0-44.0); MEAN CORPUSCULAR HGB CONC 34 g/dl (31.0-36.0); MEAN CORPUSCULAR VOLUME 90 fL (80-96); MONOCYTES # (AUTO) 0.5 K/uL (0.1-1.30); MONOCYTES % (AUTO) 11.2 % (2.0-12.0); NEUTROPHILS # (AUTO) 1.4 K/uL (1.8-8.9); NEUTROPHILS % (AUTO) 32.6 % (43.0-81.0); PLATELET COUNT (AUTO) 239 K/uL (150-450); RED BLOOD CELL COUNT(AUTO) 4.61 MIL/uL (4.5-6.0); WHITE BLOOD COUNT (AUTO) 4.4 K/uL (4.3-11.0)
[2022-10-15 07:55] LABS: ALBUMIN 3.6 g/dL (3.4-5.0); BILIRUBIN,TOTAL 0.4 mg/dL (0.2-1.0); CALCIUM, SERUM 9.5 mg/dL (8.5-10.1); CREATININE 0.8 mg/dL (0.6-1.3); MAGNESIUM 1.9 mg/dL (1.8-2.4); POTASSIUM 4.3 mmol/L (3.5-5.1); TOTAL PROTEIN, SERUM 7.1 g/dL (6.4-8.2)
[2022-10-15 08:00] VITALS: BP 129/88; TEMP 98.1; O2SAT 95
[2022-10-15] MEDS: THIAMINE HCL 100 MG TABLET PO SCH (08:35)
[2022-10-15] MEDS: GABAPENTIN 300 MG CAPSULE PO SCH ×2 (08:35→12:42)
[2022-10-15] MEDS: SUCRALFATE 1 G/10 ML UDC GT SCH (08:35)
[2022-10-15] MEDS: CITALOPRAM HYDROBROMIDE 20 MG TABLET PO SCH (08:36)
[2022-10-15] MEDS: PANTOPRAZOLE 40 MG TABLET.DR PO SCH (08:36)
[2022-10-15] MEDS: ALPRAZOLAM 1 MG TABLET PO PRN (08:58)
--- NOTE | 2022-10-15 08:58 | NUR ---
RN NOTE PATIENT STATED THAT HE'S HAVING AN ANXIETY ATTACK. PRN XANAX GIVEN. WILL CONTINUE TO MONITOR PATIENT.
--- NOTE | 2022-10-15 09:00 | NUR ---
RN NOTE wasted Dilaudid 0.5 mg out of 1mg. witnessed by acosta alves RN.
[2022-10-15] MEDS: MUPIROCIN OINT 2% 22 GM TUBE NS SCH (09:30)
[2022-10-15] MEDS: HYDROMORPHONE 1 MG/1 ML DISP.SYRIN IV PRN (09:56)
--- NOTE | 2022-10-15 09:58 | NUR ---
RN NOTE Witnessed a waste with INGRID Drew of Dilaudid 0.5 mg out of 1mg.
[2022-10-15] MEDS ORDERED: SUCRALFATE 1 G TABLET PO SCH (12:00)
--- NOTE | 2022-10-15 12:05 | NUR ---
RN NOTE PATIENT REFUSED TO CHECK HIS BS. HE STATED THAT " I DON'T NEED IT". WILL CONTINUE TO MONITOR
[2022-10-15] MEDS: ACETAMINOPHEN 325 MG TABLET PO PRN (14:12)
--- NOTE | 2022-10-15 16:01 | NUR ---
PT DISCHARGED AT [facility] IN STABLE CONDITION. A/O X4. ABLE TO MAKE NEEDS KNOWN. ON ROOM AIR, TOLERATING WELL, NO SOB NOTED. PHOTO OF SKIN ISSUES TAKEN AND RECORDED. ALL BELONGINGS ACCOUNTED FOR AND PT SIGNED BELONGINGS LIST. IV ACCESS ON RFA G#22 REMOVED WITH NO ACTIVE BLEEDING NOTED, DRY DRESSING APPLIED AT SITE. HEALTH TEACHINGS/DISCHARGE INSTRUCTIONS GIVEN TO PT AND 2 [employer] MARKET CLERK'S, BOTH VERBALIZED UNDERSTANDING. CALLED [facility] AND REPORT GIVEN TO INGRID SOSA. NAME ARMBAND REMOVED. PT LEFT UNIT @ 1600 ACCOMPANIED BY 2EMS. CHARGE NURSE AWARE OF D/C.
== END 2022-10-15 16:00 | DRG 440 ==
LOC: ER 16:36 → MED 20:56
PROVIDERS: ADMIT Internal Medicine; ATTEND Nurse Practitioner Family
DX: K85.20 Alcohol induced acute pancreatitis without necrosis or infection (principal); K86.0 Alcohol-induced chronic pancreatitis; E87.5 Hyperkalemia; E11.9 Type 2 diabetes mellitus without complications; F41.9 Anxiety disorder, unspecified; Z59.00 Homelessness unspecified; Z88.0 Allergy status to penicillin; Z79.4 Long term (current) use of insulin; Z79.84 Long term (current) use of oral hypoglycemic drugs; K83.8 Other specified diseases of biliary tract; F10.21 Alcohol dependence, in remission
CPT/HCPCS: 36415; 74181-TC; 76705-TC; 80048-TC; 80053-TC; 80076-TC; 82962-TC; 83690-TC; 83735-TC; 84100-TC; 85025-TC; 87081-TC; A4223; C9113; G0378; J1170; J1650; J1815; J1885; J2060; J2270; J2405; J7120

== ENCOUNTER 2023-01-08 13:36 | Emergency (ER) | payer MEDICARE, OTHER ==
[~2023-01-08] VITALS: Ht 175.3 cm; Wt 88.9 kg
[~2023-01-08 13:36] MED LIST: ALPR1TAB2 PO; BLOO-668 IN; BUSP10TA3 PO; CITA20TA19; FOLI0.8C PO; GABA600T12 PO; IBUP-1953 PO; INSULIN GLARGINE SQ; INSULIN REGULAR SQ; LISI-768 PO; METF-440 PO; METH10TA2 PO; PANT20TA2 PO; QUET200T PO; SIME80TA15 PO; TEMA15CA PO; THIA100T88 PO
[2023-01-08 13:40] VITALS: BP 157/99; TEMP 98.2; O2SAT 98
[2023-01-08 14:15] LABS: BASOPHILS % (AUTO) 0.3 % (0.0-2.0); EOSINOPHILS % (AUTO) 0.3 % (0.0-6.0); HEMATOCRIT 44 % (39-51); HEMOGLOBIN 15.4 g/dL (13.5-17.5); LYMPHOCYTES # (AUTO) 2.5 K/uL (0.8-4.8); LYMPHOCYTES % (AUTO) 32.9 % (20.0-44.0); MEAN CORPUSCULAR HEMOGLOBIN 31 PG (26.0-33.0); MEAN CORPUSCULAR HGB CONC 35 g/dl (31.0-36.0); MEAN CORPUSCULAR VOLUME 88 fL (80-96); MONOCYTES # (AUTO) 0.6 K/uL (0.1-1.30); MONOCYTES % (AUTO) 8.6 % (2.0-12.0); NEUTROPHILS # (AUTO) 4.3 K/uL (1.8-8.9); NEUTROPHILS % (AUTO) 57.9 % (43.0-81.0); PLATELET COUNT (AUTO) 368 K/uL (150-450); RED BLOOD CELL COUNT(AUTO) 5.04 MIL/uL (4.5-6.0); RED CELL DISTRIBUTION WIDTH 12.8 % (11.5-15.0); WHITE BLOOD COUNT (AUTO) 7.5 K/uL (4.3-11.0)
[2023-01-08 14:17] LABS: APPEARANCE,URINE CLEAR (CLEAR); BILIRUBIN,URINE NEGATIVE (NEGATIVE); BLOOD, URINE 1+ Ery/uL (NEGATIVE); COLOR,URINE DARK YELLOW (YELLOW); KETONES,URINE TRACE mg/dL (NEGATIVE); LEUKOCYTE ESTERASE ,URINE NEGATIVE (NEGATIVE); NITRITE, URINE NEGATIVE (NEGATIVE); PROTEIN,URINE 2+ mg/dl (NEGATIVE); UGLUCOSE 3+ mg/dL (NEGATIVE)
[2023-01-08 14:34] LABS: CALCIUM, SERUM 9.2 mg/dL (8.5-10.1); CARBON DIOXIDE 26 mmol/L (21-32); CHLORIDE 94 mmol/L (98-107); CREATININE 1.1 mg/dL (0.6-1.3); GLUCOSE 314 mg/dL (74-106); POTASSIUM 3.2 mmol/L (3.5-5.1); SODIUM SERUM 134 mmol/L (136-145); UREA NITROGEN, BLOOD 9 mg/dL (7-18)
[2023-01-08 14:38] LABS: ACETAMINOPHEN <10 ug/ml (10-30); ALANINE AMINOTRANSFERASE 44 U/L (12-78); ALBUMIN 4.3 g/dL (3.4-5.0); ALCOHOL, BLOOD 50 mg/dL (0-10); ALKALINE PHOSPHATASE 203 U/L (46-116); ASPARTATE AMINOTRANSFERASE 22 U/L (15-37); BILIRUBIN,DIRECT 0.2 mg/dL (0.0-0.2); BILIRUBIN,TOTAL 0.7 mg/dL (0.2-1.0); SALICYLATE 0.8 mg/dL (2.8-20.0); TOTAL PROTEIN, SERUM 8.1 g/dL (6.4-8.2)
[2023-01-08 14:40] LABS: AMPHETAMINE, URINE NEGATIVE (NEGATIVE); BARBITURATE, URINE NEGATIVE (NEGATIVE); BENZODIAZEPINE, URINE NEGATIVE (NEGATIVE); CANNABINOID, URINE NEGATIVE (NEGATIVE); COCCAINE, URINE NEGATIVE (NEGATIVE); OPIATE, URINE NEGATIVE (NEGATIVE); PHENCYCLIDINE SCREEN,URINE NEGATIVE (NEGATIVE)
[2023-01-08 16:04] LABS: ADD URINE CULTURE NO; BACTERIA,URINE RARE /HPF (None Seen); MUCUS,URINE Many /LPF (None Seen)
[2023-01-08] MEDS ORDERED: LORAZEPAM 1 MG TABLET ONE (16:12)
[2023-01-08] MEDS ORDERED: LORAZEPAM 1 MG TABLET PO ONE (16:30)
== END 2023-01-08 18:25 ==
LOC: ER 13:36
DX: R45.851 Suicidal ideations (principal); F32.A Depression, unspecified; I10 Essential (primary) hypertension; E11.9 Type 2 diabetes mellitus without complications; Z88.0 Allergy status to penicillin; Z79.4 Long term (current) use of insulin; Z79.899 Other long term (current) drug therapy; Z20.822 Contact with and (suspected) exposure to COVID-19
CPT/HCPCS: 36415; 80048-TC; 80076-TC; 81001; 85025-TC; C9803; G0480

== ENCOUNTER 2023-02-12 14:03 | Emergency (ER) | payer MEDICARE, OTHER ==
[~2023-02-12] VITALS: Ht 175.3 cm; Wt 86.2 kg
[2023-02-12 14:25] VITALS: BP 148/68; TEMP 98.1; O2SAT 99
[2023-02-12 15:21] LABS: BASOPHILS % (AUTO) 0.5 % (0.0-2.0); EOSINOPHILS % (AUTO) 0.2 % (0.0-6.0); HEMATOCRIT 41 % (39-51); HEMOGLOBIN 14.1 g/dL (13.5-17.5); LYMPHOCYTES # (AUTO) 1.7 K/uL (0.8-4.8); LYMPHOCYTES % (AUTO) 30.3 % (20.0-44.0); MEAN CORPUSCULAR HEMOGLOBIN 31 PG (26.0-33.0); MEAN CORPUSCULAR HGB CONC 34 g/dl (31.0-36.0); MEAN CORPUSCULAR VOLUME 90 fL (80-96); MONOCYTES # (AUTO) 0.4 K/uL (0.1-1.30); MONOCYTES % (AUTO) 6.8 % (2.0-12.0); NEUTROPHILS # (AUTO) 3.4 K/uL (1.8-8.9); NEUTROPHILS % (AUTO) 62.2 % (43.0-81.0); PLATELET COUNT (AUTO) 295 K/uL (150-450); RED BLOOD CELL COUNT(AUTO) 4.56 MIL/uL (4.5-6.0); RED CELL DISTRIBUTION WIDTH 14.1 % (11.5-15.0); WHITE BLOOD COUNT (AUTO) 5.5 K/uL (4.3-11.0)
[2023-02-12 15:29] LABS: APPEARANCE,URINE CLEAR (CLEAR); BILIRUBIN,URINE NEGATIVE (NEGATIVE); BLOOD, URINE NEGATIVE Ery/uL (NEGATIVE); COLOR,URINE YELLOW (YELLOW); KETONES,URINE NEGATIVE (NEGATIVE); LEUKOCYTE ESTERASE ,URINE NEGATIVE (NEGATIVE); NITRITE, URINE POSITIVE (NEGATIVE); PROTEIN,URINE NEGATIVE (NEGATIVE); UGLUCOSE 3+ mg/dL (NEGATIVE); UROBILINOGEN,URINE 0.2 EU/dL (0.2)
[2023-02-12 15:36] LABS: ALANINE AMINOTRANSFERASE 68 U/L (12-78); ALBUMIN 3.5 g/dL (3.4-5.0); ALCOHOL, BLOOD 134 mg/dL (0-10); ALKALINE PHOSPHATASE 198 U/L (46-116); ASPARTATE AMINOTRANSFERASE 95 U/L (15-37); BILIRUBIN,DIRECT 0.2 mg/dL (0.0-0.2); BILIRUBIN,TOTAL 0.3 mg/dL (0.2-1.0); CALCIUM, SERUM 8.6 mg/dL (8.5-10.1); CARBON DIOXIDE 24 mmol/L (21-32); CHLORIDE 95 mmol/L (98-107); CREATININE 0.8 mg/dL (0.6-1.3); GLUCOSE 281 mg/dL (74-106); POTASSIUM 4.2 mmol/L (3.5-5.1); SODIUM SERUM 131 mmol/L (136-145); TOTAL PROTEIN, SERUM 6.9 g/dL (6.4-8.2); UREA NITROGEN, BLOOD 6 mg/dL (7-18)
[2023-02-12 15:42] LABS: AMPHETAMINE, URINE NEGATIVE (NEGATIVE); BARBITURATE, URINE NEGATIVE (NEGATIVE); CANNABINOID, URINE NEGATIVE (NEGATIVE); COCCAINE, URINE NEGATIVE (NEGATIVE); OPIATE, URINE NEGATIVE (NEGATIVE); PHENCYCLIDINE SCREEN,URINE NEGATIVE (NEGATIVE)
[2023-02-12 15:49] LABS: SALICYLATE 1.3 mg/dL (2.8-20.0)
[2023-02-12 15:50] LABS: ACETAMINOPHEN < 10 ug/ml (10-30)
[2023-02-12 15:55] LABS: BENZODIAZEPINE, URINE POSITIVE (NEGATIVE)
[2023-02-12 16:21] LABS: ADD URINE CULTURE YES; BACTERIA,URINE RARE /HPF (None Seen); RBC,URINE 0-2 /HPF (0-2); SQUAMOUS EPITHELIAL CELL,UR 0-2 /HPF (None Seen); WBC,URINE 0-2 /HPF (0-3)
[2023-02-12] MEDS ORDERED: LORAZEPAM 1 MG TABLET ONE ×2 (16:29→21:42)
[2023-02-12] MEDS ORDERED: LORAZEPAM 1 MG TABLET PO ONE ×2 (16:30→21:30)
[2023-02-12] MEDS ORDERED: SULFAMETH/TRIMETH 800/160 MG 1 UDTAB TABLET PO ONE (18:00)
[2023-02-12] MEDS ORDERED: SULFAMETH/TRIMETH 800/160 MG 1 UDTAB TABLET ONE (19:04)
[2023-02-12] MEDS ORDERED: SULF1TAB48 PO (19:12)
[2023-02-12] MEDS ORDERED: GABAPENTIN 100 MG CAPSULE PO ONE (20:00)
[2023-02-12] MEDS ORDERED: GABAPENTIN 100 MG CAPSULE ONE (20:30)
== END 2023-02-13 04:46 ==
LOC: ER 14:03
DX: R45.851 Suicidal ideations (principal); N39.0 Urinary tract infection, site not specified; I10 Essential (primary) hypertension; E11.9 Type 2 diabetes mellitus without complications; F20.9 Schizophrenia, unspecified; F17.200 Nicotine dependence, unspecified, uncomplicated; Z88.0 Allergy status to penicillin; Z59.00 Homelessness unspecified; Z79.84 Long term (current) use of oral hypoglycemic drugs; Z79.4 Long term (current) use of insulin; Z79.899 Other long term (current) drug therapy
CPT/HCPCS: 36415; 80048-TC; 80076-TC; 81001; 85025-TC; 87086-TC; G0480

== ENCOUNTER 2023-04-12 22:13 | Emergency (ER) | payer MEDICARE, OTHER ==
[~2023-04-12] VITALS: Ht 180.3 cm; Wt 86.2 kg
[~2023-04-12 22:13] MED LIST changes: +SULF1TAB48 PO
[2023-04-13 01:37] LABS: BASOPHILS % (AUTO) 0.5 % (0.0-2.0); EOSINOPHILS # (AUTO) 0.1 K/uL (0.0-0.7); EOSINOPHILS % (AUTO) 1.3 % (0.0-6.0); HEMATOCRIT 39 % (39-51); HEMOGLOBIN 13.2 g/dL (13.5-17.5); LYMPHOCYTES # (AUTO) 2.4 K/uL (0.8-4.8); LYMPHOCYTES % (AUTO) 37.7 % (20.0-44.0); MEAN CORPUSCULAR HEMOGLOBIN 31 PG (26.0-33.0); MEAN CORPUSCULAR HGB CONC 34 g/dl (31.0-36.0); MEAN CORPUSCULAR VOLUME 91 fL (80-96); MONOCYTES # (AUTO) 0.5 K/uL (0.1-1.30); NEUTROPHILS # (AUTO) 3.3 K/uL (1.8-8.9); NEUTROPHILS % (AUTO) 52.5 % (43.0-81.0); PLATELET COUNT (AUTO) 295 K/uL (150-450); RED BLOOD CELL COUNT(AUTO) 4.31 MIL/uL (4.5-6.0); RED CELL DISTRIBUTION WIDTH 13.4 % (11.5-15.0); WHITE BLOOD COUNT (AUTO) 6.3 K/uL (4.3-11.0)
[2023-04-13 01:44] LABS: CALCIUM, SERUM 9.4 mg/dL (8.5-10.1); CARBON DIOXIDE 28 mmol/L (21-32); CHLORIDE 99 mmol/L (98-107); CREATININE 0.8 mg/dL (0.6-1.3); GLUCOSE 176 mg/dL (74-106); POTASSIUM 4.1 mmol/L (3.5-5.1); SODIUM SERUM 133 mmol/L (136-145); UREA NITROGEN, BLOOD 5 mg/dL (7-18)
[2023-04-13 01:50] LABS: ALANINE AMINOTRANSFERASE 16 U/L (12-78); ALBUMIN 3.9 g/dL (3.4-5.0); ALCOHOL, BLOOD < 3 mg/dL (0-10); ALKALINE PHOSPHATASE 117 U/L (46-116); ASPARTATE AMINOTRANSFERASE 19 U/L (15-37); BILIRUBIN,TOTAL 0.3 mg/dL (0.2-1.0); TOTAL PROTEIN, SERUM 7.4 g/dL (6.4-8.2)
[2023-04-13 01:57] LABS: ACETAMINOPHEN <10 ug/ml (10-30); SALICYLATE 1.7 mg/dL (2.8-20.0)
[2023-04-13 01:59] LABS: APPEARANCE,URINE CLEAR (CLEAR); BILIRUBIN,URINE NEGATIVE (NEGATIVE); BLOOD, URINE NEGATIVE Ery/uL (NEGATIVE); COLOR,URINE YELLOW (YELLOW); KETONES,URINE NEGATIVE (NEGATIVE); LEUKOCYTE ESTERASE ,URINE NEGATIVE (NEGATIVE); NITRITE, URINE NEGATIVE (NEGATIVE); PH,URINE 5.5 (5.0-8.0); PROTEIN,URINE NEGATIVE (NEGATIVE); UGLUCOSE NEGATIVE (NEGATIVE); UROBILINOGEN,URINE 0.2 EU/dL (0.2)
[2023-04-13 02:12] LABS: AMPHETAMINE, URINE NEGATIVE (NEGATIVE); BARBITURATE, URINE NEGATIVE (NEGATIVE); CANNABINOID, URINE NEGATIVE (NEGATIVE); COCCAINE, URINE NEGATIVE (NEGATIVE); OPIATE, URINE NEGATIVE (NEGATIVE); PHENCYCLIDINE SCREEN,URINE NEGATIVE (NEGATIVE)
[2023-04-13 02:25] LABS: BENZODIAZEPINE, URINE POSITIVE (NEGATIVE)
[2023-04-13 06:20] VITALS: BP 160/101; TEMP 97.8; O2SAT 100
== END 2023-04-13 07:50 | disposition left against medical advice (07) ==
LOC: ER 22:15
DX: Z04.6 Encounter for general psychiatric examination, requested by authority (principal); I10 Essential (primary) hypertension; E11.9 Type 2 diabetes mellitus without complications; F17.200 Nicotine dependence, unspecified, uncomplicated; Z88.0 Allergy status to penicillin; Z59.00 Homelessness unspecified; Z79.4 Long term (current) use of insulin; Z79.899 Other long term (current) drug therapy; Z20.822 Contact with and (suspected) exposure to COVID-19
CPT/HCPCS: 36415; 80053-TC; 85025-TC; G0480

== ENCOUNTER 2023-05-31 11:16 | Emergency (ER) | payer MEDICARE, OTHER ==
[~2023-05-31] VITALS: Ht 180.3 cm; Wt 86.2 kg
[2023-05-31 11:54] LABS: BASOPHILS % (AUTO) 0.4 % (0.0-2.0); EOSINOPHILS # (AUTO) 0.1 K/uL (0.0-0.7); EOSINOPHILS % (AUTO) 1.8 % (0.0-6.0); HEMATOCRIT 39 % (39-51); LYMPHOCYTES # (AUTO) 0.9 K/uL (0.8-4.8); LYMPHOCYTES % (AUTO) 19.2 % (20.0-44.0); MEAN CORPUSCULAR HEMOGLOBIN 31 PG (26.0-33.0); MEAN CORPUSCULAR HGB CONC 33 g/dl (31.0-36.0); MEAN CORPUSCULAR VOLUME 92 fL (80-96); MONOCYTES # (AUTO) 0.2 K/uL (0.1-1.30); MONOCYTES % (AUTO) 5.1 % (2.0-12.0); NEUTROPHILS # (AUTO) 3.4 K/uL (1.8-8.9); NEUTROPHILS % (AUTO) 73.5 % (43.0-81.0); PLATELET COUNT (AUTO) 294 K/uL (150-450); RED BLOOD CELL COUNT(AUTO) 4.25 MIL/uL (4.5-6.0); RED CELL DISTRIBUTION WIDTH 13.3 % (11.5-15.0); WHITE BLOOD COUNT (AUTO) 4.7 K/uL (4.3-11.0)
[2023-05-31] MEDS: OLANZAPINE 5 MG TABLET PO ONE (12:00)
[2023-05-31 12:02] LABS: CALCIUM, SERUM 8.9 mg/dL (8.5-10.1); CARBON DIOXIDE 27 mmol/L (21-32); CHLORIDE 97 mmol/L (98-107); GLUCOSE 238 mg/dL (74-106); POTASSIUM 4.5 mmol/L (3.5-5.1); SODIUM SERUM 132 mmol/L (136-145); UREA NITROGEN, BLOOD 4 mg/dL (7-18)
[2023-05-31 12:07] LABS: ALANINE AMINOTRANSFERASE 22 U/L (12-78); ALBUMIN 3.2 g/dL (3.4-5.0); ALCOHOL, BLOOD < 3 mg/dL (0-10); ALKALINE PHOSPHATASE 147 U/L (46-116); ASPARTATE AMINOTRANSFERASE 20 U/L (15-37); BILIRUBIN,DIRECT 0.1 mg/dL (0.0-0.2); BILIRUBIN,TOTAL 0.2 mg/dL (0.2-1.0); TOTAL PROTEIN, SERUM 6.6 g/dL (6.4-8.2)
[2023-05-31 12:11] LABS: ACETAMINOPHEN <10 ug/ml (10-30); SALICYLATE 2.4 mg/dL (2.8-20.0)
[2023-05-31 12:13] LABS: AMPHETAMINE, URINE NEGATIVE (NEGATIVE); BARBITURATE, URINE NEGATIVE (NEGATIVE); BENZODIAZEPINE, URINE POSITIVE (NEGATIVE); CANNABINOID, URINE NEGATIVE (NEGATIVE); COCCAINE, URINE NEGATIVE (NEGATIVE); OPIATE, URINE NEGATIVE (NEGATIVE); PHENCYCLIDINE SCREEN,URINE NEGATIVE (NEGATIVE)
[2023-05-31] MEDS ORDERED: OLANZAPINE 5 MG TABLET ONE (12:15)
[2023-05-31 12:21] LABS: APPEARANCE,URINE CLEAR (CLEAR); BILIRUBIN,URINE NEGATIVE (NEGATIVE); BLOOD, URINE NEGATIVE Ery/uL (NEGATIVE); COLOR,URINE YELLOW (YELLOW); KETONES,URINE NEGATIVE (NEGATIVE); LEUKOCYTE ESTERASE ,URINE NEGATIVE (NEGATIVE); NITRITE, URINE NEGATIVE (NEGATIVE); PROTEIN,URINE NEGATIVE (NEGATIVE); UGLUCOSE TRACE mg/dL (NEGATIVE); UROBILINOGEN,URINE 0.2 EU/dL (0.2)
[2023-05-31 12:22] LABS: ADD URINE CULTURE NO; BACTERIA,URINE None seen /HPF (None Seen); RBC,URINE 0-2 /HPF (0-2); WBC,URINE NONE SEEN /HPF (0-3)
[2023-05-31 12:23] LABS: SQUAMOUS EPITHELIAL CELL,UR 0-2 /HPF (None Seen)
[2023-05-31 14:59] VITALS: BP 129/87; TEMP 98.3; O2SAT 99
== END 2023-05-31 15:00 | disposition home or self-care (01) ==
LOC: ER 11:24
DX: E11.9 Type 2 diabetes mellitus without complications (principal); R44.0 Auditory hallucinations; I10 Essential (primary) hypertension; F17.200 Nicotine dependence, unspecified, uncomplicated; Z79.899 Other long term (current) drug therapy; Z20.822 Contact with and (suspected) exposure to COVID-19; Z88.0 Allergy status to penicillin
CPT/HCPCS: 36415; 80048-TC; 80076-TC; 81001; 85025-TC; G0480

== ENCOUNTER 2023-06-09 11:25 | Emergency (ER) | payer MEDICARE, OTHER | END 2023-06-09 13:43 | disposition home or self-care (01) | LOC: ER 11:36 | DX: Z00.00 Encounter for general adult medical examination without abnormal findings (principal); I10 Essential (primary) hypertension; E11.9 Type 2 diabetes mellitus without complications; F32.A Depression, unspecified; Z53.21 Procedure and treatment not carried out due to patient leaving prior to being seen by health care provider ==

== ENCOUNTER 2023-06-09 13:56 | Emergency (ER) | payer MEDICARE, OTHER ==
[~2023-06-09] VITALS: Ht 180.3 cm; Wt 86.2 kg
[2023-06-09 14:49] VITALS: TEMP 98.6
[2023-06-09 15:36] LABS: APPEARANCE,URINE CLEAR (CLEAR); BILIRUBIN,URINE NEGATIVE (NEGATIVE); BLOOD, URINE TRACE-INTA Ery/uL (NEGATIVE); COLOR,URINE YELLOW (YELLOW); KETONES,URINE TRACE mg/dL (NEGATIVE); LEUKOCYTE ESTERASE ,URINE NEGATIVE (NEGATIVE); NITRITE, URINE NEGATIVE (NEGATIVE); PROTEIN,URINE NEGATIVE (NEGATIVE); UGLUCOSE 3+ mg/dL (NEGATIVE)
[2023-06-09 16:22] LABS: BASOPHILS % (AUTO) 0.3 % (0.0-2.0); EOSINOPHILS % (AUTO) 0.4 % (0.0-6.0); HEMATOCRIT 44 % (39-51); HEMOGLOBIN 14.9 g/dL (13.5-17.5); LYMPHOCYTES # (AUTO) 1.3 K/uL (0.8-4.8); LYMPHOCYTES % (AUTO) 32.8 % (20.0-44.0); MEAN CORPUSCULAR HEMOGLOBIN 31 PG (26.0-33.0); MEAN CORPUSCULAR HGB CONC 34 g/dl (31.0-36.0); MEAN CORPUSCULAR VOLUME 91 fL (80-96); MONOCYTES # (AUTO) 0.1 K/uL (0.1-1.30); MONOCYTES % (AUTO) 2.5 % (2.0-12.0); NEUTROPHILS # (AUTO) 2.5 K/uL (1.8-8.9); PLATELET COUNT (AUTO) 321 K/uL (150-450); RED BLOOD CELL COUNT(AUTO) 4.86 MIL/uL (4.5-6.0); RED CELL DISTRIBUTION WIDTH 13.6 % (11.5-15.0); WHITE BLOOD COUNT (AUTO) 3.8 K/uL (4.3-11.0)
[2023-06-09 16:35] LABS: ALBUMIN 3.7 g/dL (3.4-5.0); BILIRUBIN,DIRECT 0.1 mg/dL (0.0-0.2); BILIRUBIN,TOTAL 0.3 mg/dL (0.2-1.0); TOTAL PROTEIN, SERUM 7.8 g/dL (6.4-8.2)
[2023-06-09 16:51] LABS: CALCIUM, SERUM 8.8 mg/dL (8.5-10.1); CREATININE 0.9 mg/dL (0.6-1.3); POTASSIUM 4.8 mmol/L (3.5-5.1)
[2023-06-09 16:54] LABS: WBC,URINE NONE SEEN /HPF (0-3)
[2023-06-09 16:55] LABS: ADD URINE CULTURE NO; BACTERIA,URINE None seen /HPF (None Seen); SQUAMOUS EPITHELIAL CELL,UR None Seen /HPF (None Seen)
[2023-06-09 17:18] LABS: AMPHETAMINE, URINE NEGATIVE (NEGATIVE); BARBITURATE, URINE NEGATIVE (NEGATIVE); BENZODIAZEPINE, URINE NEGATIVE (NEGATIVE); CANNABINOID, URINE NEGATIVE (NEGATIVE); COCCAINE, URINE NEGATIVE (NEGATIVE); OPIATE, URINE NEGATIVE (NEGATIVE); PHENCYCLIDINE SCREEN,URINE NEGATIVE (NEGATIVE)
[2023-06-09] MEDS ORDERED: LORAZEPAM 0.5 MG TABLET ONE ×2 (17:42→19:06)
[2023-06-09] MEDS: LORAZEPAM 0.5 MG TABLET PO ONE (17:44)
[2023-06-09] MEDS: LORAZEPAM 1 MG TABLET PO ONE (19:18)
[2023-06-09 19:26] VITALS: BP 122/81; O2SAT 99
== END 2023-06-09 19:26 | disposition home or self-care (01) ==
LOC: ER 14:02
DX: R45.851 Suicidal ideations (principal); E11.65 Type 2 diabetes mellitus with hyperglycemia; R10.11 Right upper quadrant pain; R74.01 Elevation of levels of liver transaminase levels; F10.129 Alcohol abuse with intoxication, unspecified; I10 Essential (primary) hypertension; Z88.0 Allergy status to penicillin; Z59.00 Homelessness unspecified; Z79.4 Long term (current) use of insulin; Z79.84 Long term (current) use of oral hypoglycemic drugs; Z79.899 Other long term (current) drug therapy; Y90.8 Blood alcohol level of 240 mg/100 ml or more
CPT/HCPCS: 36415; 76705-TC; 80048-TC; 80076-TC; 81001; 83690-TC; 85025-TC; G0480

== ENCOUNTER 2023-09-22 15:05 | Emergency (ER) | payer MEDICARE, OTHER ==
[~2023-09-22] VITALS: Ht 180.3 cm; Wt 95.3 kg
[2023-09-22] MEDS: CYCLOBENZAPRINE 10 MG TABLET PO ONE (15:30)
[2023-09-22] MEDS: IBUPROFEN 600 MG TABLET PO ONE (15:30)
[2023-09-22] MEDS ORDERED: CYCLOBENZAPRINE 10 MG TABLET ONE (15:37)
[2023-09-22] MEDS ORDERED: IBUPROFEN 600 MG TABLET ONE (15:37)
[2023-09-22] MEDS ORDERED: CYCL5TAB PO (16:19)
[2023-09-22 16:36] VITALS: BP 108/77; TEMP 98.4; O2SAT 97
== END 2023-09-22 16:37 | disposition home or self-care (01) ==
LOC: ER 15:38
DX: M25.531 Pain in right wrist (principal); M54.50 Low back pain, unspecified; I10 Essential (primary) hypertension; E11.9 Type 2 diabetes mellitus without complications; F19.10 Other psychoactive substance abuse, uncomplicated; F17.200 Nicotine dependence, unspecified, uncomplicated; Z88.0 Allergy status to penicillin; Z59.00 Homelessness unspecified; V43.52XA Car driver injured in collision with other type car in traffic accident, initial encounter; Y93.89 Activity, other specified; Y92.488 Other paved roadways as the place of occurrence of the external cause; Y99.8 Other external cause status
CPT/HCPCS: 73110

== ENCOUNTER → 2023-11-08 | Emergency (ER) | payer MEDICARE, OTHER ==
[~2023-11-08] VITALS: Ht 177.8 cm; Wt 74.8 kg
[~2023-11-08] MED LIST changes: +CYCL5TAB PO; +INSU100I30 SQ; +INSU100I45 SUBCUT; +INSULIN REGULAR, HUMAN 100 UNIT/ML 10 ML VIAL ONE; +LORAZEPAM 1 MG TABLET ONE
[2023-11-08 14:00] LABS: APPEARANCE,URINE CLEAR (CLEAR); BILIRUBIN,URINE NEGATIVE (NEGATIVE); BLOOD, URINE NEGATIVE Ery/uL (NEGATIVE); COLOR,URINE YELLOW (YELLOW); KETONES,URINE 1+ mg/dL (NEGATIVE); LEUKOCYTE ESTERASE ,URINE NEGATIVE (NEGATIVE); NITRITE, URINE NEGATIVE (NEGATIVE); PROTEIN,URINE NEGATIVE (NEGATIVE); UGLUCOSE 3+ mg/dL (NEGATIVE); UROBILINOGEN,URINE 0.2 EU/dL (0.2)
[2023-11-08 14:23] LABS: ADD URINE CULTURE NO; BACTERIA,URINE None seen /HPF (None Seen); RBC,URINE 0-2 /HPF (0-2); SQUAMOUS EPITHELIAL CELL,UR None Seen /HPF (None Seen); WBC,URINE NONE SEEN /HPF (0-3)
[2023-11-08 14:29] LABS: AMPHETAMINE, URINE NEGATIVE (NEGATIVE); BARBITURATE, URINE NEGATIVE (NEGATIVE); BENZODIAZEPINE, URINE NEGATIVE (NEGATIVE); CANNABINOID, URINE NEGATIVE (NEGATIVE); COCCAINE, URINE NEGATIVE (NEGATIVE); OPIATE, URINE NEGATIVE (NEGATIVE); PHENCYCLIDINE SCREEN,URINE NEGATIVE (NEGATIVE)
[2023-11-08 15:07] LABS: BASOPHILS % (AUTO) 0.2 % (0.0-2.0); EOSINOPHILS % (AUTO) 0.1 % (0.0-6.0); HEMATOCRIT 43 % (39-51); HEMOGLOBIN 14.7 g/dL (13.5-17.5); LYMPHOCYTES # (AUTO) 1.5 K/uL (0.8-4.8); LYMPHOCYTES % (AUTO) 18.4 % (20.0-44.0); MEAN CORPUSCULAR HEMOGLOBIN 31 PG (26.0-33.0); MEAN CORPUSCULAR HGB CONC 35 g/dl (31.0-36.0); MEAN CORPUSCULAR VOLUME 89 fL (80-96); MONOCYTES # (AUTO) 0.4 K/uL (0.1-1.30); MONOCYTES % (AUTO) 4.4 % (2.0-12.0); NEUTROPHILS # (AUTO) 6.3 K/uL (1.8-8.9); NEUTROPHILS % (AUTO) 76.9 % (43.0-81.0); PLATELET COUNT (AUTO) 358 K/uL (150-450); RED BLOOD CELL COUNT(AUTO) 4.79 MIL/uL (4.5-6.0); WHITE BLOOD COUNT (AUTO) 8.2 K/uL (4.3-11.0)
[2023-11-08 15:13] LABS: CALCIUM, SERUM 9.9 mg/dL (8.5-10.1); CARBON DIOXIDE 29 mmol/L (21-32); CHLORIDE 91 mmol/L (98-107); GLUCOSE 385 mg/dL (74-106); POTASSIUM 4.7 mmol/L (3.5-5.1); SODIUM SERUM 131 mmol/L (136-145); UREA NITROGEN, BLOOD 8 mg/dL (7-18)
[2023-11-08 15:18] LABS: ALANINE AMINOTRANSFERASE 15 U/L (12-78); ALBUMIN 4.2 g/dL (3.4-5.0); ALKALINE PHOSPHATASE 154 U/L (46-116); ASPARTATE AMINOTRANSFERASE 10 U/L (15-37); BILIRUBIN,DIRECT 0.2 mg/dL (0.0-0.2); BILIRUBIN,TOTAL 0.6 mg/dL (0.2-1.0); SALICYLATE 3.8 mg/dL (2.8-20.0); TOTAL PROTEIN, SERUM 8.2 g/dL (6.4-8.2)
[2023-11-08 15:19] LABS: ACETAMINOPHEN 0 ug/ml (10-30); ALCOHOL, BLOOD < 3 mg/dL (0-10)
[2023-11-08] MEDS: INSULIN REGULAR, HUMAN 100 UNIT/ML 3 ML VIAL IV ONE (15:41)
[2023-11-08] MEDS: IV NS 0.9% 1,000 ML IV ONE (15:44)
[2023-11-08] MEDS: IV NS 0.9% 1,000 ML BAG IV ONE (15:55)
[2023-11-08] MEDS: LORAZEPAM 1 MG TABLET PO ONE (16:43)
[2023-11-08 17:04] VITALS: BP 132/71; TEMP 98; O2SAT 97
[2023-11-08 17:41] LABS: CALCIUM, SERUM 9.4 mg/dL (8.5-10.1); POTASSIUM 4.4 mmol/L (3.5-5.1)
== END ==
LOC: ER 12:00
DX: R45.851 Suicidal ideations (principal); I10 Essential (primary) hypertension; E11.65 Type 2 diabetes mellitus with hyperglycemia; F17.200 Nicotine dependence, unspecified, uncomplicated; Z79.4 Long term (current) use of insulin; Z79.1 Long term (current) use of non-steroidal anti-inflammatories (NSAID); Z79.84 Long term (current) use of oral hypoglycemic drugs; Z79.899 Other long term (current) drug therapy; Z20.822 Contact with and (suspected) exposure to COVID-19; Z98.890 Other specified postprocedural states; Z59.00 Homelessness unspecified; Z88.0 Allergy status to penicillin
CPT/HCPCS: 99285; 96374; 96361; 85025; 80048 ×2; 80076; 81001; 36415; 87426; 80143; 80320; 80307; 98960; J1815 ×2; J7030; G0480

== ENCOUNTER 2023-11-20 09:50 | Emergency (ER) | payer MEDICARE, OTHER ==
[~2023-11-20] VITALS: Ht 180.3 cm; Wt 90.3 kg
[~2023-11-20 09:50] MED LIST changes: -INSU100I30 SQ; -INSU100I45 SUBCUT; -INSULIN REGULAR, HUMAN 100 UNIT/ML 10 ML VIAL ONE; -LORAZEPAM 1 MG TABLET ONE
[2023-11-20] MEDS ORDERED: BLOO-668 IN (10:16)
[2023-11-20] MEDS ORDERED: INSU100I30 SQ (10:16)
[2023-11-20] MEDS ORDERED: INSU100I45 SUBCUT (10:16)
[2023-11-20 10:26] VITALS: BP 133/85; TEMP 98.4; O2SAT 100
== END 2023-11-20 10:26 | disposition home or self-care (01) ==
LOC: ER 09:58
DX: E11.9 Type 2 diabetes mellitus without complications (principal); Z76.0 Encounter for issue of repeat prescription; F17.200 Nicotine dependence, unspecified, uncomplicated; Z79.1 Long term (current) use of non-steroidal anti-inflammatories (NSAID); Z79.899 Other long term (current) drug therapy; Z59.00 Homelessness unspecified; Z88.0 Allergy status to penicillin
CPT/HCPCS: 82962-TC

== ENCOUNTER 2023-12-02 16:57 | Emergency (ER) | payer MEDICARE, OTHER ==
[~2023-12-02] VITALS: Ht 180.3 cm; Wt 93.9 kg
[~2023-12-02 16:57] MED LIST changes: +INSU100I30 SQ; +INSU100I45 SUBCUT
[2023-12-02 17:20] VITALS: BP 140/96; TEMP 98; O2SAT 99
[2023-12-02 17:40] LABS: BASOPHILS % (AUTO) 0.3 % (0.0-2.0); EOSINOPHILS # (AUTO) 0.2 K/uL (0.0-0.7); EOSINOPHILS % (AUTO) 2.6 % (0.0-6.0); HEMATOCRIT 37 % (39-51); HEMOGLOBIN 12.7 g/dL (13.5-17.5); LYMPHOCYTES # (AUTO) 2.8 K/uL (0.8-4.8); LYMPHOCYTES % (AUTO) 39.3 % (20.0-44.0); MEAN CORPUSCULAR HEMOGLOBIN 32 PG (26.0-33.0); MEAN CORPUSCULAR HGB CONC 35 g/dl (31.0-36.0); MEAN CORPUSCULAR VOLUME 91 fL (80-96); MONOCYTES # (AUTO) 0.5 K/uL (0.1-1.30); MONOCYTES % (AUTO) 6.9 % (2.0-12.0); NEUTROPHILS # (AUTO) 3.6 K/uL (1.8-8.9); NEUTROPHILS % (AUTO) 50.9 % (43.0-81.0); PLATELET COUNT (AUTO) 248 K/uL (150-450); RED BLOOD CELL COUNT(AUTO) 4.04 MIL/uL (4.5-6.0); RED CELL DISTRIBUTION WIDTH 13.4 % (11.5-15.0); WHITE BLOOD COUNT (AUTO) 7.1 K/uL (4.3-11.0)
[2023-12-02 17:45] LABS: APPEARANCE,URINE Clear (CLEAR); BILIRUBIN,URINE Negative (NEGATIVE); BLOOD, URINE Negative Ery/uL (NEGATIVE); COLOR,URINE YELLOW (YELLOW); KETONES,URINE Negative (NEGATIVE); LEUKOCYTE ESTERASE ,URINE Negative (NEGATIVE); NITRITE, URINE Negative (NEGATIVE); PROTEIN,URINE Negative (NEGATIVE); UGLUCOSE >=1000 mg/dL (NEGATIVE); UROBILINOGEN,URINE 0.2 EU/dL (0.2)
[2023-12-02 17:47] LABS: ADD URINE CULTURE NO; BACTERIA,URINE Rare /HPF (None Seen); RBC,URINE 0-2 /HPF (0-2); WBC,URINE 0-2 /HPF (0-3)
[2023-12-02 17:48] LABS: CALCIUM OXALATE CRYSTALS,UR Rare /HPF (None Seen); SQUAMOUS EPITHELIAL CELL,UR None Seen /HPF (None Seen)
[2023-12-02 17:56] LABS: AMPHETAMINE, URINE NEGATIVE (NEGATIVE); BARBITURATE, URINE NEGATIVE (NEGATIVE); BENZODIAZEPINE, URINE POSITIVE (NEGATIVE); CALCIUM, SERUM 8.7 mg/dL (8.5-10.1); CANNABINOID, URINE NEGATIVE (NEGATIVE); CARBON DIOXIDE 31 mmol/L (21-32); CHLORIDE 100 mmol/L (98-107); COCCAINE, URINE NEGATIVE (NEGATIVE); GLUCOSE 225 mg/dL (74-106); OPIATE, URINE POSITIVE (NEGATIVE); PHENCYCLIDINE SCREEN,URINE NEGATIVE (NEGATIVE); POTASSIUM 4.7 mmol/L (3.5-5.1); SODIUM SERUM 132 mmol/L (136-145); UREA NITROGEN, BLOOD 7 mg/dL (7-18)
[2023-12-02 18:01] LABS: ALANINE AMINOTRANSFERASE 22 U/L (12-78); ALBUMIN 3.6 g/dL (3.4-5.0); ALCOHOL, BLOOD < 3 mg/dL (0-10); ALKALINE PHOSPHATASE 115 U/L (46-116); ASPARTATE AMINOTRANSFERASE 18 U/L (15-37); BILIRUBIN,TOTAL 0.2 mg/dL (0.2-1.0); SALICYLATE 2.2 mg/dL (2.8-20.0); TOTAL PROTEIN, SERUM 6.5 g/dL (6.4-8.2)
[2023-12-02 18:02] LABS: ACETAMINOPHEN <10 ug/ml (10-30)
== END 2023-12-02 20:59 | disposition home or self-care (01) ==
LOC: ER 16:59
DX: E11.65 Type 2 diabetes mellitus with hyperglycemia (principal); R44.0 Auditory hallucinations; F19.10 Other psychoactive substance abuse, uncomplicated; F17.200 Nicotine dependence, unspecified, uncomplicated; Z88.0 Allergy status to penicillin; Z20.822 Contact with and (suspected) exposure to COVID-19
CPT/HCPCS: 36415; 80048-TC; 80076-TC; 81001; 82962-TC; 85025-TC; G0480

== ENCOUNTER 2024-01-01 12:37 | Emergency (ER) | payer MEDICARE, OTHER ==
[~2024-01-01] VITALS: Ht 180.3 cm; Wt 94.3 kg
[2024-01-01 14:53] LABS: BASOPHILS % (AUTO) 0.4 % (0.0-2.0); EOSINOPHILS # (AUTO) 0.1 K/uL (0.0-0.7); EOSINOPHILS % (AUTO) 0.8 % (0.0-6.0); HEMATOCRIT 39 % (39-51); HEMOGLOBIN 13.6 g/dL (13.5-17.5); LYMPHOCYTES # (AUTO) 2.2 K/uL (0.8-4.8); LYMPHOCYTES % (AUTO) 23.8 % (20.0-44.0); MEAN CORPUSCULAR HEMOGLOBIN 31 PG (26.0-33.0); MEAN CORPUSCULAR HGB CONC 35 g/dl (31.0-36.0); MEAN CORPUSCULAR VOLUME 88 fL (80-96); MONOCYTES # (AUTO) 0.4 K/uL (0.1-1.30); MONOCYTES % (AUTO) 4.7 % (2.0-12.0); NEUTROPHILS # (AUTO) 6.4 K/uL (1.8-8.9); NEUTROPHILS % (AUTO) 70.3 % (43.0-81.0); PLATELET COUNT (AUTO) 293 K/uL (150-450); RED BLOOD CELL COUNT(AUTO) 4.39 MIL/uL (4.5-6.0); RED CELL DISTRIBUTION WIDTH 13.1 % (11.5-15.0); WHITE BLOOD COUNT (AUTO) 9.1 K/uL (4.3-11.0)
[2024-01-01 15:01] LABS: ALANINE AMINOTRANSFERASE 18 U/L (12-78); ALBUMIN 3.9 g/dL (3.4-5.0); ALCOHOL, BLOOD < 3 mg/dL (0-10); ALKALINE PHOSPHATASE 124 U/L (46-116); ASPARTATE AMINOTRANSFERASE 13 U/L (15-37); BILIRUBIN,DIRECT 0.1 mg/dL (0.0-0.2); BILIRUBIN,TOTAL 0.3 mg/dL (0.2-1.0); CALCIUM, SERUM 9.1 mg/dL (8.5-10.1); CARBON DIOXIDE 32 mmol/L (21-32); CHLORIDE 96 mmol/L (98-107); CREATININE 0.8 mg/dL (0.6-1.3); GLUCOSE 221 mg/dL (74-106); POTASSIUM 4.6 mmol/L (3.5-5.1); SALICYLATE 2.8 mg/dL (2.8-20.0); SODIUM SERUM 133 mmol/L (136-145); TOTAL PROTEIN, SERUM 7.1 g/dL (6.4-8.2); UREA NITROGEN, BLOOD 8 mg/dL (7-18)
[2024-01-01 15:03] LABS: ACETAMINOPHEN <10 ug/ml (10-30)
[2024-01-01 15:06] LABS: APPEARANCE,URINE CLEAR (CLEAR); BILIRUBIN,URINE NEGATIVE (NEGATIVE); BLOOD, URINE NEGATIVE Ery/uL (NEGATIVE); COLOR,URINE YELLOW (YELLOW); KETONES,URINE NEGATIVE (NEGATIVE); LEUKOCYTE ESTERASE ,URINE NEGATIVE (NEGATIVE); NITRITE, URINE NEGATIVE (NEGATIVE); PROTEIN,URINE NEGATIVE (NEGATIVE); UGLUCOSE 1+ mg/dL (NEGATIVE); UROBILINOGEN,URINE 0.2 EU/dL (0.2)
[2024-01-01 15:15] LABS: AMPHETAMINE, URINE NEGATIVE (NEGATIVE); BARBITURATE, URINE NEGATIVE (NEGATIVE); CANNABINOID, URINE NEGATIVE (NEGATIVE); COCCAINE, URINE NEGATIVE (NEGATIVE); OPIATE, URINE NEGATIVE (NEGATIVE); PHENCYCLIDINE SCREEN,URINE NEGATIVE (NEGATIVE)
[2024-01-01 15:17] LABS: BENZODIAZEPINE, URINE POSITIVE (NEGATIVE)
[2024-01-01 16:00] LABS: ADD URINE CULTURE NO; BACTERIA,URINE None seen /HPF (None Seen); RBC,URINE 0-2 /HPF (0-2); SQUAMOUS EPITHELIAL CELL,UR 0-2 /HPF (None Seen); WBC,URINE 0-2 /HPF (0-3)
[2024-01-01] MEDS ORDERED: LORAZEPAM 1 MG TABLET ONE (17:25)
[2024-01-01] MEDS: LORAZEPAM 1 MG TABLET PO ONE (17:27)
[2024-01-01 18:14] VITALS: BP 130/78; TEMP 98; O2SAT 96
== END 2024-01-01 18:15 | disposition home or self-care (01) ==
LOC: ER 12:39
DX: R45.851 Suicidal ideations (principal); E11.9 Type 2 diabetes mellitus without complications; F32.A Depression, unspecified; F17.200 Nicotine dependence, unspecified, uncomplicated; Z88.0 Allergy status to penicillin; Z20.822 Contact with and (suspected) exposure to COVID-19
CPT/HCPCS: 36415; 80048-TC; 80076-TC; 81001; 85025-TC; G0480

== ENCOUNTER 2024-02-17 23:32 | Emergency (ER) | payer MEDICARE, OTHER ==
[~2024-02-17] VITALS: Ht 180.3 cm; Wt 91.6 kg
[2024-02-18] MEDS ORDERED: LISINOPRIL (20MG) 20 MG TABLET ONE (00:17)
[2024-02-18 00:20] LABS: BASOPHILS % (AUTO) 0.6 % (0.0-2.0); EOSINOPHILS # (AUTO) 0.2 K/uL (0.0-0.7); EOSINOPHILS % (AUTO) 2.9 % (0.0-6.0); HEMATOCRIT 37 % (39-51); HEMOGLOBIN 12.8 g/dL (13.5-17.5); LYMPHOCYTES # (AUTO) 2.4 K/uL (0.8-4.8); LYMPHOCYTES % (AUTO) 44.1 % (20.0-44.0); MEAN CORPUSCULAR HEMOGLOBIN 31 PG (26.0-33.0); MEAN CORPUSCULAR HGB CONC 35 g/dl (31.0-36.0); MEAN CORPUSCULAR VOLUME 91 fL (80-96); MONOCYTES # (AUTO) 0.4 K/uL (0.1-1.30); MONOCYTES % (AUTO) 7.4 % (2.0-12.0); NEUTROPHILS # (AUTO) 2.5 K/uL (1.8-8.9); PLATELET COUNT (AUTO) 252 K/uL (150-450); RED BLOOD CELL COUNT(AUTO) 4.09 MIL/uL (4.5-6.0); RED CELL DISTRIBUTION WIDTH 12.7 % (11.5-15.0); WHITE BLOOD COUNT (AUTO) 5.6 K/uL (4.3-11.0)
[2024-02-18 00:26] LABS: APPEARANCE,URINE CLEAR (CLEAR); BILIRUBIN,URINE NEGATIVE (NEGATIVE); BLOOD, URINE NEGATIVE Ery/uL (NEGATIVE); COLOR,URINE YELLOW (YELLOW); KETONES,URINE NEGATIVE (NEGATIVE); LEUKOCYTE ESTERASE ,URINE NEGATIVE (NEGATIVE); NITRITE, URINE NEGATIVE (NEGATIVE); PROTEIN,URINE NEGATIVE (NEGATIVE); UGLUCOSE 2+ mg/dL (NEGATIVE); UROBILINOGEN,URINE 0.2 EU/dL (0.2)
[2024-02-18] MEDS: LISINOPRIL (20MG) 20 MG TABLET PO SCH (00:30)
[2024-02-18 00:36] LABS: CALCIUM, SERUM 8.9 mg/dL (8.5-10.1); CARBON DIOXIDE 28 mmol/L (21-32); CHLORIDE 102 mmol/L (98-107); CREATININE 0.8 mg/dL (0.6-1.3); GLUCOSE 204 mg/dL (74-106); POTASSIUM 3.7 mmol/L (3.5-5.1); SODIUM SERUM 136 mmol/L (136-145); UREA NITROGEN, BLOOD 8 mg/dL (7-18)
[2024-02-18 00:38] LABS: ADD URINE CULTURE NO; BACTERIA,URINE None seen /HPF (None Seen); MUCUS,URINE Moderate /LPF (None Seen); RBC,URINE NONE SEEN /HPF (0-2); WBC,URINE NONE SEEN /HPF (0-3)
[2024-02-18 00:40] LABS: AMPHETAMINE, URINE NEGATIVE (NEGATIVE); BARBITURATE, URINE NEGATIVE (NEGATIVE); CANNABINOID, URINE NEGATIVE (NEGATIVE); COCCAINE, URINE NEGATIVE (NEGATIVE); OPIATE, URINE NEGATIVE (NEGATIVE); PHENCYCLIDINE SCREEN,URINE NEGATIVE (NEGATIVE)
[2024-02-18 00:41] LABS: BENZODIAZEPINE, URINE POSITIVE (NEGATIVE)
[2024-02-18 00:43] LABS: ACETAMINOPHEN < 10 ug/ml (10-30); ALANINE AMINOTRANSFERASE 27 U/L (12-78); ALBUMIN 3.6 g/dL (3.4-5.0); ALCOHOL, BLOOD < 3 mg/dL (0-10); ALKALINE PHOSPHATASE 107 U/L (46-116); ASPARTATE AMINOTRANSFERASE 17 U/L (15-37); BILIRUBIN,DIRECT 0.1 mg/dL (0.0-0.2); BILIRUBIN,TOTAL 0.1 mg/dL (0.2-1.0); SALICYLATE 5.1 mg/dL (2.8-20.0); TOTAL PROTEIN, SERUM 6.5 g/dL (6.4-8.2)
[2024-02-18 11:15] VITALS: BP 133/87; TEMP 97.8; O2SAT 99
== END 2024-02-18 11:49 ==
LOC: ER 23:37
DX: R45.851 Suicidal ideations (principal); F32.A Depression, unspecified; F17.200 Nicotine dependence, unspecified, uncomplicated; E11.9 Type 2 diabetes mellitus without complications; I10 Essential (primary) hypertension; Z79.4 Long term (current) use of insulin; Z79.84 Long term (current) use of oral hypoglycemic drugs; Z79.899 Other long term (current) drug therapy; Z88.0 Allergy status to penicillin; Z20.822 Contact with and (suspected) exposure to COVID-19
CPT/HCPCS: 36415; 80048-TC; 80076-TC; 81001; 85025-TC; G0480

== ENCOUNTER 2024-07-08 19:58 | Inpatient (IN) | payer MEDICARE, OTHER ==
[~2024-07-08] VITALS: Ht 167.6 cm; Wt 97.5 kg
[2024-07-08 20:23] LABS: BASOPHILS # (AUTO) 0.1 K/uL (0.0-0.2); BASOPHILS % (AUTO) 0.8 % (0.0-2.0); EOSINOPHILS # (AUTO) 0.2 K/uL (0.0-0.7); EOSINOPHILS % (AUTO) 2.4 % (0.0-6.0); HEMATOCRIT 37 % (39-51); HEMOGLOBIN 13.2 g/dL (13.5-17.5); LYMPHOCYTES # (AUTO) 3.1 K/uL (0.8-4.8); LYMPHOCYTES % (AUTO) 43.8 % (20.0-44.0); MEAN CORPUSCULAR HEMOGLOBIN 31 PG (26.0-33.0); MEAN CORPUSCULAR HGB CONC 35 g/dl (31.0-36.0); MEAN CORPUSCULAR VOLUME 87 fL (80-96); MONOCYTES # (AUTO) 0.6 K/uL (0.1-1.30); MONOCYTES % (AUTO) 8.6 % (2.0-12.0); NEUTROPHILS # (AUTO) 3.1 K/uL (1.8-8.9); NEUTROPHILS % (AUTO) 44.4 % (43.0-81.0); PLATELET COUNT (AUTO) 385 K/uL (150-450); RED CELL DISTRIBUTION WIDTH 13.1 % (11.5-15.0); WHITE BLOOD COUNT (AUTO) 7.1 K/uL (4.3-11.0)
[2024-07-08] MEDS: IV D5 LR 500 ML IV ONE (20:32)
[2024-07-08 20:33] LABS: CALCIUM, SERUM 10.3 mg/dL (8.5-10.1); CREATININE 0.9 mg/dL (0.6-1.3)
[2024-07-08] MEDS ORDERED: POTASSIUM CHLORIDE 20 MEQ TAB.PRT.SR PO ONE (20:42)
[2024-07-08] MEDS: POTASSIUM CHLORIDE 20 MEQ TAB.PRT.SR PO ONE (20:49)
[2024-07-08 20:51] LABS: BILIRUBIN,TOTAL 0.2 mg/dL (0.2-1.0); TOTAL PROTEIN, SERUM 7.6 g/dL (6.4-8.2)
[2024-07-08 20:52] LABS: POTASSIUM 2.5 mmol/L (3.5-5.1)
[2024-07-08 21:06] LABS: ACETAMINOPHEN 0 ug/ml (10-30); ALCOHOL, BLOOD < 3 mg/dL (0-10); SALICYLATE 1.7 mg/dL (2.8-20.0)
[2024-07-08] MEDS ORDERED: POTASSIUM CL. PREMIX PERIPHER. 50 ML ONE ×2 (21:09→22:17)
[2024-07-08] MEDS: POTASSIUM CL. PREMIX PERIPHER. 50 ML IV SCH (21:31)
[2024-07-08 21:50] LABS: APPEARANCE,URINE CLEAR (CLEAR); BILIRUBIN,URINE NEGATIVE (NEGATIVE); BLOOD, URINE TRACE-INTA Ery/uL (NEGATIVE); KETONES,URINE NEGATIVE (NEGATIVE); LEUKOCYTE ESTERASE ,URINE NEGATIVE (NEGATIVE); NITRITE, URINE NEGATIVE (NEGATIVE); PROTEIN,URINE NEGATIVE (NEGATIVE); UGLUCOSE TRACE mg/dL (NEGATIVE); UROBILINOGEN,URINE 0.2 EU/dL (0.2)
[2024-07-08 21:51] LABS: COLOR,URINE STRAW (YELLOW)
[2024-07-08 22:01] LABS: AMPHETAMINE, URINE NEGATIVE (NEGATIVE); BARBITURATE, URINE NEGATIVE (NEGATIVE); CANNABINOID, URINE NEGATIVE (NEGATIVE); COCCAINE, URINE NEGATIVE (NEGATIVE); OPIATE, URINE NEGATIVE (NEGATIVE); PHENCYCLIDINE SCREEN,URINE NEGATIVE (NEGATIVE)
[2024-07-08 22:02] LABS: ADD URINE CULTURE NO; BACTERIA,URINE Rare /HPF (None Seen); BENZODIAZEPINE, URINE POSITIVE (NEGATIVE); SQUAMOUS EPITHELIAL CELL,UR Few /HPF (None Seen); WBC,URINE 0-2 /HPF (0-3)
[2024-07-08 22:03] LABS: MUCUS,URINE Few /LPF (None Seen)
[2024-07-08] MEDS ORDERED: POTASSIUM CL. PREMIX PERIPHER. 100 ML ONE (23:20)
[2024-07-08] MEDS: IV NS 0.9% 1,000 ML BAG IV ONE (23:21)
[2024-07-09] MEDS ORDERED: Z GUARD REMEDY 4 OZ OINT TP PRN
[2024-07-09] MEDS ORDERED: DEXTROSE 50%-WATER 50 ML DISP.SYRIN IV PRN
[2024-07-09] MEDS ORDERED: ACETAMINOPHEN 325 MG TABLET PO PRN
[2024-07-09] MEDS ORDERED: MAGNESIUM HYDROXIDE 30 ML UDC PO PRN
[2024-07-09] MEDS ORDERED: ONDANSETRON HCL/PF 4 MG/2 ML VIAL IVP PRN
[2024-07-09] MEDS: BLOOD SUGAR DIAGNOSTIC 1 EACH STRIP IN SCH (00:05)
[2024-07-09] MEDS: IV D5/0.45 NACL 1,000 ML IV PRN (01:16)
[2024-07-09 02:03] VITALS: BP 137/84; TEMP 97.3; O2SAT 99
[2024-07-09] MEDS ORDERED: METRONIDAZOLE 500MG/ NS 100ML 100 ML IV ONE (03:23)
[2024-07-09] MEDS: METRONIDAZOLE 500MG/ NS 100ML 500 MG in PREMIX 1 EA IV SCH (03:26)
[2024-07-09] MEDS: INSULIN REGULAR, HUMAN 100 UNIT/ML 3 ML VIAL SQ PRN (03:50)
[2024-07-09 04:00] VITALS: BP 132/80; TEMP 97.4; O2SAT 98
[2024-07-09] MEDS: ALPRAZOLAM 0.25 MG TABLET PO ONE (04:07)
[2024-07-09 07:07] LABS: BASOPHILS % (AUTO) 0.3 % (0.0-2.0); EOSINOPHILS % (AUTO) 0.3 % (0.0-6.0); HEMATOCRIT 41 % (39-51); HEMOGLOBIN 13.9 g/dL (13.5-17.5); LYMPHOCYTES # (AUTO) 0.9 K/uL (0.8-4.8); LYMPHOCYTES % (AUTO) 12.6 % (20.0-44.0); MEAN CORPUSCULAR HEMOGLOBIN 30 PG (26.0-33.0); MEAN CORPUSCULAR HGB CONC 34 g/dl (31.0-36.0); MEAN CORPUSCULAR VOLUME 89 fL (80-96); MONOCYTES # (AUTO) 0.4 K/uL (0.1-1.30); NEUTROPHILS # (AUTO) 6.1 K/uL (1.8-8.9); NEUTROPHILS % (AUTO) 81.8 % (43.0-81.0); PLATELET COUNT (AUTO) 332 K/uL (150-450); RED BLOOD CELL COUNT(AUTO) 4.63 MIL/uL (4.5-6.0); RED CELL DISTRIBUTION WIDTH 13.2 % (11.5-15.0); WHITE BLOOD COUNT (AUTO) 7.5 K/uL (4.3-11.0)
[2024-07-09 08:00] VITALS: BP 145/94; TEMP 97.9; O2SAT 99
[2024-07-09] MEDS: PANTOPRAZOLE 40 MG TABLET.DR PO SCH (08:33)
[2024-07-09 08:47] LABS: CALCIUM, SERUM 9.4 mg/dL (8.5-10.1); CREATININE 1.1 mg/dL (0.6-1.3); PHOSPHORUS 2.4 mg/dL (2.5-4.9); POTASSIUM 5.3 mmol/L (3.5-5.1)
[2024-07-09] MEDS ORDERED: LISI20TA30 PO (09:18)
[2024-07-09] MEDS ORDERED: OLAN5TAB6 PO (09:18)
[2024-07-09] MEDS ORDERED: POTASSIUM CHLORIDE PO (09:18)
[2024-07-09] MEDS ORDERED: Methadone Hcl (09:18)
[2024-07-09] MEDS ORDERED: INSU100V7 SQ (09:18)
[2024-07-09] MEDS ORDERED: HYDR25TA4 PO (09:18)
[2024-07-09] MEDS ORDERED: ZOLP5TAB8 PO (09:18)
[2024-07-09] MEDS ORDERED: MULT-594 PO (09:18)
[2024-07-09] MEDS ORDERED: ATOR40TA PO (09:18)
[2024-07-09] MEDS ORDERED: OLAN15TA6 PO (09:18)
[2024-07-09] MEDS ORDERED: INSU100I4 SQ (09:18)
[2024-07-09] MEDS ORDERED: VITAMIN B12 PO (09:18)
[2024-07-09] MEDS ORDERED: PANT40TA49 PO (09:18)
[2024-07-09] MEDS ORDERED: OMEG1CAP PO (09:18)
[2024-07-09] MEDS ORDERED: IBUP-1955 PO (09:18)
[2024-07-09] MEDS ORDERED: METF-442 PO (09:18)
[2024-07-09 09:31] LABS: THYROID STIMULATING HORMONE 0.45 uIU/mL (0.358-3.74)
[2024-07-09] MEDS ORDERED: INSULIN GLARGINE, 100 UNIT/ML CARTRIDGE SQ STA (09:36)
[2024-07-09] MEDS ORDERED: METRONIDAZOLE 500MG/ NS 100ML 500 MG in PREMIX 1 EA IV SCH (13:00)
== END 2024-07-09 10:01 | disposition left against medical advice (07) | DRG 637 ==
LOC: ER 20:02 → MEDSG1 07-09 00:59
PROVIDERS: ADMIT Nurse Practitioner Family; ATTEND Internal Medicine
DX: E11.649 Type 2 diabetes mellitus with hypoglycemia without coma (principal); G92.8 Other toxic encephalopathy; R45.851 Suicidal ideations; Z20.822 Contact with and (suspected) exposure to COVID-19; F32.A Depression, unspecified; I10 Essential (primary) hypertension; Z88.0 Allergy status to penicillin; Z79.4 Long term (current) use of insulin; Z79.84 Long term (current) use of oral hypoglycemic drugs; Z79.899 Other long term (current) drug therapy; E87.6 Hypokalemia; F20.9 Schizophrenia, unspecified; Z53.29 Procedure and treatment not carried out because of patient's decision for other reasons; R19.7 Diarrhea, unspecified
CPT/HCPCS: 36415; 70450-TC; 71045-TC; 80048-TC; 80053-TC; 80061-TC; 81001; 83735-TC; 84100-TC; 84443-TC; 85025-TC; A4216; A4223; G0378; G0480; J1815; J3480; J3490